=== PATIENT | female | born 1960 | race Caucasian/White ===

== ENCOUNTER 2018-05-13 08:40 | Outpatient (CLI) | payer OTHER ==
[2018-05-13 10:13] LABS: #Basophils 0.1 thou/uL (0.0-0.2); #Eosinphils 0.3 thou/uL (0.0-0.7); #Lymphocytes 2.9 thou/uL (1.20-3.40); #Monocytes 0.5 thou/uL (0.11-0.59); #Neutrophils 5.5 thou/uL (1.40-6.50); %Basophils 0.7 % (0.0-1.0); %Eosinophils 3.4 % (0.0-10.0); %Lymphocytes 31.3 % (21.0-51.0); %Monocytes 5.8 % (0.0-10.0); %Neutrophils 58.8 % (42.0-75.0); Hemoglobin 12.7 g/dL (12.0-16.0); Mean Corpuscular HGB CONC 32.2 g/dL (32.0-36.0); Mean Corpuscular Hemoglobin 30.9 pg (27.0-31.0); Mean Corpuscular Volume 95.8 fL (78.0-98.0); Mean Platelet Volume 6.6 fL (7.4-10.4); Platelet Count 541 thou/uL (130-400); RBC Distribution Width 12.2 % (11.5-14.5); Red Blood Cell (RBC) Count 4.12 mill/uL (4.20-5.40); White Blood Cell (WBC) Count 9.3 thou/uL (4.8-10.8)
[2018-05-13 10:23] LABS: INR-International Normal Ratio 0.9; PTT 24.8 SEC (22.9-36.1); Prothrombin Time 12.2 SEC (12.0-14.7)
== END 2018-05-13 08:41 | disposition home or self-care (01) ==
LOC: LABBT 08:40
PROVIDERS: ATTEND Neurological Surgery
DX: Z01.812 Encounter for preprocedural laboratory examination (principal); M43.16 Spondylolisthesis, lumbar region
CPT/HCPCS: 85025; 85610; 85730

== ENCOUNTER 2018-05-13 09:15 | Inpatient (IN) | payer OTHER ==
[2018-05-13 08:59] VITALS: BMI 23.6
--- NOTE | 2018-05-15 08:03 | HP ---
HISTORY OF PRESENT ILLNESS: Ms. Cummins is a 57-year-old female who has returned to our office for evaluation and review of new MRI and to talk about surgery. She has history of cervical spondylitic myelopathy treated with cervical laminectomy along with prior L4-L5 disk surgery. She remembers waking up from cervical spine operation, unable to use her arms, but gradually improved. She has had chronic pain for a long time now with 30 mg of gradual release morphine use twice daily to control it. With this history, she now has increasing midline sacral pain and some pain radiating around the right gluteal area to the anterior thigh, medial knee and stopping at the knee. There is random quality of pain and it stops her in mid walking occasionally. At other times she feels well and is active. The left leg has not been affected over the last few weeks. She has had some bouts of incontinence in the past with increased frequency recently. There are no new areas of numbness or any new weakness. REVIEW OF SYSTEMS: A 10-point review of systems has been completed and is negative other than stated in the HPI above. PAST MEDICAL HISTORY: Asthma, hypertension, chronic idiopathic urticaria, stomach pain, joint pain, PTSD, depression. ALLERGIES: PENICILLIN, TETRACYCLINE, TYLENOL, IBUPROFEN, CONTRAST DYE. PAST SURGICAL HISTORY: Bilateral TMJ, endometriosis, C3 through C5 laminectomy , right parathyroid removed and L3-5 laminectomy. FAMILY HISTORY: Father is , diagnosed with hypertension, mental illness cancer. Mother is , diagnosed with hypertension, heart disease , and stroke. Siblings are alive. SOCIAL HISTORY: The patient denies use of tobacco, illicit drugs or alcohol. PHYSICAL EXAMINATION: CONSTITUTION: The patient is alert and oriented, does not appear to be in any visible distress. HEENT: Head is normocephalic, atraumatic. Pupils are equal, round, reactive to light. Extraocular movements are intact. Vision is intact. Hearing is intact. Moist mucous membranes. RESPIRATORY: Normal work of breathing room air. CARDIAC: Regular rate and rhythm. Normal S1, S2. NEUROLOGIC: Gait and station: Mildly spastic gait tandem gait impossible. Motor exam: There is right leg giveaway with testing. IP, quadriceps, hamstrings. No objective weakness in other musculature. Sensory exam: There is no dermatomal sensory loss in L1, L2, L3, L4, L5, S1. Reflex exam: Extenuated reflexes, clonus at both ankles. IMAGING: MRI at L3-4 lateral recess disease and L4-5 prior surgery with disk collapse and listhesis 2017, right L4 synovial cyst is better now than it was then. X-rays, flexion, extension views from last year indicate L3-L4 instability and L4-L5 lesthesis is not mobile, grade I-II. ASSESSMENT AND PLAN: Spondylolisthesis in the lumbar region with spinal stenosis repair. PLAN: Dr. Sainz has offered surgery, decompressive laminectomy L3 through L5 with a fusion of L3 through L5. Informed consent, we have discussed indications, risks, benefits, alternatives, and expected results with surgery. The risks discussed included, but were not limited to bleeding, infection, CSF leak, nerve damage, weakness, incontinence, cauda equina injury, arachnoiditis, paralysis, ventilator dependent, wheelchair dependence, loss of vision, hardware misplacement, cardiopulmonary complications of anesthesia or . Long-term complications discussed included, but were not limited to the degradation of surrounding disks and the need for further surgery. The patient states that she understands the risks and willing to proceed with surgery. GEN
[2018-05-16] MEDS ORDERED: Bupivacaine HCl 0.5%/Epinephrine 1:200,000/PF 30 ml Vial ONE (06:16)
[2018-05-16] MEDS ORDERED: Sodium Chloride 0.9% 20 ML ONE (06:16)
[2018-05-16] MEDS ORDERED: Thrombin 5000 UNITS/5 ML VIAL ONE (06:17)
[2018-05-16] MEDS ORDERED: Midazolam HCl 2 mg/2 ml Vial ONE (06:26)
[2018-05-16] MEDS ORDERED: Fentanyl 250 MCG/5 ML VIAL ONE (06:26)
[2018-05-16] MEDS ORDERED: Clindamycin/D5W 900 mg/50 ml Premix Bag ONE (06:36)
[2018-05-16] MEDS ORDERED: Levofloxacin 500 mg/D5W 100 ml Premix Bag ONE (06:36)
[2018-05-16] MEDS ORDERED: Phenylephrine HCL 10 MG/ML VIAL ONE (08:31)
[2018-05-16] MEDS ORDERED: Promethazine HCl 25 MG/ML VIAL SLOW IVP PRN (11:05)
[2018-05-16] MEDS ORDERED: Ondansetron HCl/PF 4 MG/2 ML Vial IVP PRN (11:05)
[2018-05-16] MEDS ORDERED: Promethazine HCl 25 MG/ML VIAL IM PRN (11:05)
[2018-05-16] MEDS ORDERED: diphenhydrAMINE 50 MG/ML VIAL IVP PRN (12:03)
[2018-05-16] MEDS ORDERED: Milk Of Magnesia 30 ML UDCUP PO PRN (12:03)
[2018-05-16] MEDS ORDERED: traMADol HCl 50 MG TAB PO PRN (12:03)
[2018-05-16] MEDS ORDERED: Bisacodyl 10 MG SUPP PR PRN (12:03)
[2018-05-16] MEDS ORDERED: Ondansetron PF 4 MG/2 ML Vial IVP PRN (12:03)
[2018-05-16] MEDS ORDERED: Promethazine 25 MG TAB PO PRN (12:03)
[2018-05-16] MEDS ORDERED: diphenhydrAMINE 25 MG CAP PO PRN (12:03)
--- NOTE | 2018-05-16 12:17 | OP ---
DATE OF PROCEDURE: 05/16/2018 SURGEON: Frannie Sainz M.D. [employer] DEVELOPER: Joy Lunsford PA-C. PREOPERATIVE INDICATION: Treat pain, prevent neurological deterioration. PREOPERATIVE DIAGNOSES: Unstable mobile spondylolisthesis at L3-L4 with lateral recess stenosis caus ing radiculopathy, recurrent stenosis L4-5 with spondylolisthesis and advanced degenerative disk dise ase along with foraminal stenosis at L4-5. POSTOPERATIVE DIAGNOSES: Unstable mobile spondylolisthesis at L3-L4 with lateral recess stenosis cau sing radiculopathy, recurrent stenosis L4-5 with spondylolisthesis and advanced degenerative disk dis ease along with foraminal stenosis at L4-5. OPERATIVE PROCEDURE: Reopening lumbar incision, repeat lumbar decompression at L4-L5 with a laminect leesa, facetectomy, wide foraminotomy, L3-4 laminectomy, medial facetectomy, foraminotomy, transforamin al lumbar interbody arthrodesis at L3-L4 and L4-L5, placement of intervertebral biomechanical device at L3-4 and L4-5, pedicle screw and candiad instrumentation L3-4, L4-L5, posterolateral arthrodesis L3-4 and L4-L5, local morselized autograft, morselized Allograft. PREOPERATIVE MEDICATION: Ancef 2 grams IV. DRAIN NUMBER: Zero. DRAIN TYPE: None. OPERATIVE DICTATION: The patient was brought to the operating room. General endotracheal anesthesia was induced. The patient was positioned prone on the Gaston frame with appropriate padding for the chest and hips. A lateral fluoro radiograph was used to confirm that her previous incision would gi ve us access to the L4-5 segment of the lumbar spine. We marked out an incision extending superiorly from there to give us access to L3 as well. The lumbar skin was sterilely prepped and draped and we opened with a 10 blade knife. We controlled bleeding with bipolar cautery. We used monopolar caute ry to dissect through subcutaneous tissues to the thoracodorsal fascia. We incised the fascia in the midline and reflected the paraspinal muscles off the spinous process and lamina of L3, the superior portion of L4 and the bottom of L5. Between the remnant of L4 and the top of L5 there was scar tissu e, we had to dissect through, all the way down until we were flush with the laminae. We placed self- retaining retractors. We took a lateral fluoro radiograph to confirm the levels upon which we were o perating. We then performed a laminectomy, medial facetectomy and foraminotomy at L3-4. At L4-L5, w e dissected scar tissue free of the lateral confines of the spinal canal. We loosened the dural meghann chments by performing more of a bilateral laminotomy, medial facetectomy and foraminotomy over the ex iting L5 nerve roots. We passed a ball probe out the L3, L4, and L5 nerve root foramina and performe d foraminotomies until they were widely patent. Once the neural elements were decompressed we turned our attention to arthrodesis. The easiest access to the intervertebral space was from the left. We performed complete facetectomy at L3-4, L4-5 on the left side and through the L3 and L4 nerve root f oramina we accessed the intervertebral spaces. We incised them with an 11 blade knife. We removed d isk contents using curettes and rongeurs. We advanced a rectangular shaped bone rasp into the inters paces. The L4-5 interspace measured only 7 mm in height. At L3-4 the measurement was 10 mm. We pre pared the endplates for grafting with curets. Our laminectomy bone was carefully morcellized on the back table after all soft tissue was removed from the bone. This morselized bone was added to demine ralized bone matrix as our fusion substrate. A 10 mm and a 7 mm PEEK intervertebral grafts were brou ght into the field. They were packed with our demineralized bone matrix and morselized autograft and advanced into their respective interspaces under radiographic guidance to the appropriate depth. We turned our attention to pedicle screw instrumentation. Using bony anatomic landmarks, palpation of the medial portion of the pedicles, and a lateral fluoro radiograph as our guide, we chose entry points for pedicle screws at L3, L4, and L5 bilaterally. We drilled out our entry points and then used the bone awl to advance through the pedicles into the vert ebral bodies. We tapped our trajectories and probed them. We found them completely encased in bone. We placed 6.5 mm diameter screws through the pedicles into the vertebral bodies at L3, L4, L5. We irrigated copiously with bacitracin irrigation. We placed rods down in the screw heads and tightened caps over the rods. Before final tightening, we used compression across the two interspaces to keep our interbody grafts in place. Using a kdnjak-[id number]-frrhej mechanism, we ensured adequate tightne ss of the caps. With a high-speed drill, we decorticated the transverse processes of L3, L4, and L5 bilaterally and over all the decorticated bone, we left demineralized bone matrix and morselized auto graft as are posterolateral fusion substrate. We irrigated the center of the wound once again. We m cordelia sure that our compression did not narrow the foramina by passing a Musa ball probe out with eac h of the L3 and L4 nerve roots. We treated the wound with vancomycin powder and we closed the wound in anatomic layers. We applied a sterile dressing. This was a clean case and no contamination.
[2018-05-16] MEDS ORDERED: Fentanyl 100 MCG/2 ML VIAL ONE ×2 (12:29→12:48)
[2018-05-16] MEDS ORDERED: PHENYLEPHRINE-NS 100 MCG/ML 10 ML SYRINGE ONE (12:56)
[2018-05-16] MEDS ORDERED: Ondansetron PF 4 MG/2 ML Vial ONE (12:56)
[2018-05-16] MEDS ORDERED: PROPOFOL 200 MG/20 ML VIAL ONE (12:56)
[2018-05-16] MEDS ORDERED: Lidocaine 1% PF 5 ML VIAL ONE (12:56)
[2018-05-16] MEDS ORDERED: ePHEDrine/0.9% NaCl/PF SYRINGE 50 mg/10 ml ONE (12:56)
[2018-05-16] MEDS ORDERED: Metoclopramide HCl 10 MG/2 ML VIAL ONE (12:56)
[2018-05-16] MEDS ORDERED: HYDROmorphone 2 MG/ML VIAL ONE (13:08)
[2018-05-16] MEDS ORDERED: HYDROmorphone 0.5 MG/0.5 ML SYRINGE SLOW IVP PRN (13:09)
[2018-05-16] MEDS ORDERED: Promethazine HCl 25 MG/ML VIAL ONE (13:22)
[2018-05-16] MEDS: tiZANidine HCl 4 MG TAB PO PRN ×2 (15:16→22:42)
[2018-05-16] MEDS ORDERED: hydrALAZINE 20 MG/ML VIAL SLOW IVP PRN (15:27)
[2018-05-16] MEDS ORDERED: Eucerin (Mineral Oil/Petrolatum,White) 30 gm Jar TOP PRN (15:27)
[2018-05-16] MEDS ORDERED: Diabetic Tussin 200 MG/10 ML UDCUP PO PRN (15:27)
[2018-05-16] MEDS ORDERED: Ondansetron ODT 4 MG TAB PO PRN (15:27)
[2018-05-16] MEDS ORDERED: Dextrose 50% Abboject 50 ML SYRINGE SLOW IVP PRN (15:27)
[2018-05-16] MEDS ORDERED: Artificial Tears 18 DROP/0.9 ML EA EYE PRN (15:27)
[2018-05-16] MEDS ORDERED: Cepastat Lozenges 1 LOZ PO PRN (15:27)
[2018-05-16] MEDS ORDERED: Dextrose 5% in Water 1,000 ML IV PRN (15:27)
[2018-05-16] MEDS ORDERED: HumaLOG 300 UNITS/3 ML VIAL SC PRN (15:27)
[2018-05-16] MEDS ORDERED: Zolpidem Tartrate 5 MG TAB PO PRN (15:27)
--- NOTE | 2018-05-16 15:33 | PDOC.PN ---
- Subjective Encounter Start Date: 05/16/18 Encounter Start Time: 15:28 -: old records requested/rev Patient seen and examined. No new complaints. No overnight events - Objective Resuscitation Status: Resuscitation Status FULL:Full Resuscitation MAR Reviewed: Yes Vital Signs & Weight: Weight Weight 121 lb Additional Labs: Accuchecks 05/16/18 05/16/18 12:19 06:09 POC Glucose 146 H 113 H Phys Exam - Physical Examination Constitutional: NAD HEENT: PERRLA, moist MMs, sclera anicteric Neck: no JVD, supple Respiratory: no wheezing, no rales, no rhonchi Cardiovascular: RRR, no significant murmur, no rub Gastrointestinal: soft, non-tender, no distention, positive bowel sounds Musculoskeletal: no edema, pulses present Neurological: non-focal, normal sensation Lymphatic: no nodes Psychiatric: normal affect Skin: no rash, normal turgor Dx/Plan (1) S/P lumbar laminectomy Code(s): Z98.890 - OTHER SPECIFIED POSTPROCEDURAL STATES Status: Acute (2) Anxiety and depression Code(s): F41.9 - ANXIETY DISORDER, UNSPECIFIED; F32.9 - MAJOR DEPRESSIVE DISORDER, SINGLE EPISODE, UNSPECIFIED Status: Chronic (3) Asthma Code(s): J45.909 - UNSPECIFIED ASTHMA, UNCOMPLICATED Status: Chronic (4) Diabetes type 2, controlled Code(s): E11.9 - TYPE 2 DIABETES MELLITUS WITHOUT COMPLICATIONS Status: Chronic (5) Dyslipidemia Code(s): E78.5 - HYPERLIPIDEMIA, UNSPECIFIED Status: Chronic (6) GERD (gastroesophageal reflux disease) Code(s): K21.9 - GASTRO-ESOPHAGEAL REFLUX DISEASE WITHOUT ESOPHAGITIS Status: Chronic (7) Hypertension Code(s): I10 - ESSENTIAL (PRIMARY) HYPERTENSION Status: Chronic (8) Hypothyroidism Code(s): E03.9 - HYPOTHYROIDISM, UNSPECIFIED Status: Chronic - Plan cont current plan of care, plan discussed w/ family, PT/OT * Home medication reconciled * medication reviewed as below * symptomatic treatment * code status addressed and she is full code * hyperglycemia protocol treatment started * will monitor closely * pain control with pain meds as below. * discussed with family bedside Review of Systems - Review of Systems ENT: negative: Ear Pain, Ear Discharge, Nose Pain, Nose Discharge, Nose Congestion, Mouth Pain, Mouth Swelling, Throat Pain, Throat Swelling, Other Respiratory: negative: Cough, Dry, Shortness of Breath, Hemoptysis, SOB with Excertion, Pleuritic Pain, Sputum, Wheezing Cardiovascular: negative: chest pain, palpitations, orthopnea, paroxysmal nocturnal dyspnea, edema, light headedness, other Gastrointestinal: negative: Nausea, Vomiting, Abdominal Pain, Diarrhea, Constipation, Melena, Hematochezia, Other Genitourinary: negative: Dysuria, Frequency, Incontinence, Hematuria, Retention , Other Musculoskeletal: Back Pain. negative: Neck Pain, Shoulder Pain, Arm Pain, Hand Pain, Leg Pain, Foot Pain, Other Skin: negative: Rash, Lesions, Jr, Bruising, Other - Medications/Allergies Allergies/Adverse Reactions: Allergies Allergy/AdvReac Type Severity Reaction Status Date / Time acetaminophen [From Tylenol] Allergy Verified 05/13/18 09:01 amitriptyline Allergy Verified 05/13/18 09:01 amoxicillin Allergy Verified 05/13/18 09:01 baclofen Allergy Verified 05/13/18 09:01 ciprofloxacin Allergy Verified 05/13/18 09:01 erythromycin base Allergy Verified 05/13/18 09:01 Estrogens Allergy Verified 05/13/18 09:01 Iodine and Iodide Containing Allergy Verified 05/13/18 09:01 Produc naproxen [From Aleve] Allergy Verified 05/13/18 09:01 Penicillins Allergy Verified 05/13/18 09:01 Tetracyclines Allergy Verified 05/13/18 09:01 Medications: Current Medications Al Hydroxide/Mg Hydroxide (Maalox) 30 ml PO Q4H PRN PRN Reason: Indigestion Albuterol Sulfate (Proventil Hfa) 2 puff INH BID-RT [facility] Artificial Tears (Tears Naturale) 2 drop EA EYE PRN PRN PRN Reason: Dry Eyes Atorvastatin Calcium (Lipitor) 80 mg PO HS [facility] Bisacodyl (Dulcolax) 10 mg MO Q12H PRN PRN Reason: Constipation Cetirizine HCl (Zyrtec) 10 mg PO TID [facility] Dextrose/Water (Dextrose 50%) 25 gm SLOW IVP PRN PRN PRN Reason: Hypoglycemia Diphenhydramine HCl (Benadryl) 25 mg IVP Q6H PRN PRN Reason: Itching Diphenhydramine HCl (Benadryl) 25 mg PO Q6H PRN PRN Reason: Itching Doxepin HCl (Sinequan) 25 mg PO HS [facility] Escitalopram Oxalate (Lexapro) 20 mg PO QAM [facility] Gabapentin (Neurontin) 600 mg PO TID [facility] Glucagon (Glucagon) 1 mg IM PRN PRN PRN Reason: Hypoglycemia Guaifenesin (Organ-I Nr) 200 mg PO Q8HR [facility] Guaifenesin (Robitussin Sf) 200 mg PO Q4H PRN PRN Reason: Cough Hydralazine HCl (Apresoline) 10 mg SLOW IVP Q4H PRN PRN Reason: SBP > 180 and HR < 70 Hydromorphone HCl (Dilaudid) 0.5 mg SLOW IVP Q10MIN PRN PRN Reason: Pain Stop: 05/16/18 15:30 Clindamycin Phosphate/Dextrose (900 mg/ Device) 50 mls @ 100 mls/hr IVPB 0800, 1600,2359 [facility] Stop: 05/17/18 00:28 Sodium Chloride (Normal Saline 0.9%) 1,000 mls @ 75 mls/hr IV .[id number] [facility] Dextrose/Water (D5w) 1,000 mls @ 0 mls/hr IV .Q0M PRN PRN Reason: Hypoglycemia Insulin Human Lispro (Humalog) 0 units SC .MODERATE SLIDING SC PRN PRN Reason: Moderate Correctional Scale Insulin Human Lispro (Humalog) 0 units SC .BEDTIME SLIDING SC PRN PRN Reason: Bedtime Correctional Scale Ketorolac Tromethamine (Toradol) 15 mg IVP Q6H PRN PRN Reason: Pain Stop: 05/21/18 12:12 Levothyroxine Sodium (Synthroid) 88 mcg PO 0600 [facility] Lisinopril (Zestril) 5 mg PO QAM [facility] Magnesium Hydroxide (Milk Of Magnesium) 30 ml PO Q12H PRN PRN Reason: Constipation Melatonin (Melatonin) 6 mg PO HS [facility] Menthol/Methyl Salicylate (Muscle Rub Cream (Bengay)) 0 gm TOP BID [facility] Metformin HCl (Glucophage) 1,000 mg PO BID-WM [facility] Metoprolol Tartrate (Lopressor) 50 mg PO BID [facility] Mineral Oil/White Petrolatum (Lacri-Lube Ointment) 0 gm EA EYE HS [facility] Mineral Oil/White Petrolatum (Eucerin Cream) 0 gm TOP BIDPRN PRN PRN Reason: Dry Skin Morphine Sulfate (Morphine) 2 mg SLOW IVP Q1H PRN PRN Reason: Moderate Breakthrough Pain Ondansetron HCl (Zofran) 4 mg IVP DAILYPRN PRN PRN Reason: Nausea Ondansetron HCl (Zofran Odt) 4 mg PO Q6H PRN PRN Reason: Nausea/Vomiting Pantoprazole Sodium (Protonix) 40 mg PO BID [facility] Estrogen,Con/M- Progest Acet [ Prempro 0.3 Mg-1.5 Mg Tablet] 0 each PO QAM [facility] Promethazine HCl (Phenergan) 12.5 mg PO Q4H PRN PRN Reason: Nausea/Vomiting Sodium Chloride (Flush - Normal Saline) 10 ml IVF PRN PRN PRN Reason: Saline Flush Throat Lozenges (Cepastat Lozenges) 1 adeline PO Q2H PRN PRN Reason: Sore Throat Tizanidine HCl (Zanaflex) 4 mg PO Q6H PRN PRN Reason: Muscle Spasm Last Admin: 05/16/18 15:16 Dose: 4 mg Tramadol HCl (Ultram) 50 mg PO Q6H PRN PRN Reason: Mild Pain (1-3) Tramadol HCl (Ultram) 100 mg PO Q6H PRN PRN Reason: Moderate Pain (4-6) Zolpidem Tartrate (Ambien) 5 mg PO HSPRN PRN PRN Reason: Insomnia
[2018-05-16] MEDS: Gabapentin 300 MG CAP PO SCH ×2 (16:13→21:12)
[2018-05-16] MEDS: Sodium Chloride 0.9% 1,000 ML IV SCH (16:13)
[2018-05-16] MEDS: Clindamycin/D5W 900 MG in Premix Bag 1 BAG IVPB SCH (16:13)
[2018-05-16 17:54] LABS: #Basophils 0.1 thou/uL (0.0-0.2); #Lymphocytes 1.6 thou/uL (1.20-3.40); #Monocytes 0.9 thou/uL (0.11-0.59); #Neutrophils 6.9 thou/uL (1.40-6.50); %Eosinophils 0.3 % (0.0-10.0); %Lymphocytes 16.7 % (21.0-51.0); %Monocytes 9.2 % (0.0-10.0); %Neutrophils 72.8 % (42.0-75.0); Mean Corpuscular HGB CONC 32.6 g/dL (32.0-36.0); Mean Corpuscular Hemoglobin 31.4 pg (27.0-31.0); Mean Corpuscular Volume 96.4 fL (78.0-98.0); Mean Platelet Volume 6.3 fL (7.4-10.4); Platelet Count 370 thou/uL (130-400); RBC Distribution Width 11.9 % (11.5-14.5); Red Blood Cell (RBC) Count 2.87 mill/uL (4.20-5.40); White Blood Cell (WBC) Count 9.5 thou/uL (4.8-10.8)
[2018-05-16] MEDS ORDERED: Sodium Chloride 0.9% 1,000 ML IV SCH (18:00)
[2018-05-16] MEDS: metFORMIN 500 MG TAB PO SCH (18:10)
[2018-05-16] MEDS: PROVENTIL INHALER 6.7 G (200 INHALATIONS) INH SCH (19:14)
[2018-05-16] MEDS: Lacri-Lube Opth Oint 3.5 GM TUBE EA EYE SCH (21:11)
[2018-05-16] MEDS: Atorvastatin Calcium 40 MG TAB PO SCH (21:11)
[2018-05-16] MEDS: Doxepin HCl 25 MG CAP PO SCH (21:11)
[2018-05-16] MEDS: Melatonin 3 MG TAB PO SCH (21:13)
[2018-05-16] MEDS: Metoprolol Tartrate 50 MG TAB PO SCH (21:13)
[2018-05-16] MEDS: Methyl Salicylate/Menthol 85 GM TUBE TOP SCH (21:13)
[2018-05-16] MEDS: Ketorolac Tromethamine 30 MG/ML VIAL IVP PRN (21:14)
[2018-05-16] MEDS: guaiFENesin 200 MG TAB PO SCH (22:42)
[2018-05-17] MEDS: Clindamycin/D5W 900 MG in Premix Bag 1 BAG IVPB SCH (00:31)
[2018-05-17] MEDS: Sodium Chloride 0.9% 1,000 ML IV SCH ×3 (02:41→21:39)
[2018-05-17] MEDS: guaiFENesin 200 MG TAB PO SCH ×3 (06:52→21:40)
[2018-05-17] MEDS: HumaLOG 300 UNITS/3 ML VIAL SC PRN ×2 (06:53→15:36)
[2018-05-17] MEDS: Levothyroxine Sodium 88 MCG TAB PO SCH (06:53)
[2018-05-17] MEDS: Ketorolac Tromethamine 30 MG/ML VIAL IVP PRN (06:53)
[2018-05-17] MEDS: PROVENTIL INHALER 6.7 G (200 INHALATIONS) INH SCH ×2 (07:58→19:16)
[2018-05-17] MEDS ORDERED: Dexamethasone 20 MG/5 ML VIAL SLOW IVP SCH (08:30)
[2018-05-17] MEDS ORDERED: Dexamethasone 4 mg/ml Vial SLOW IVP SCH (09:15)
--- NOTE | 2018-05-17 09:26 | PDOC.PN ---
- Subjective Encounter Start Date: 05/17/18 Encounter Start Time: 07:40 Patient seen and examined. No new complaints. No overnight events, she has mild surgery related pain - Objective Resuscitation Status: Resuscitation Status FULL:Full Resuscitation MAR Reviewed: Yes Vital Signs & Weight: Vital Signs (12 hours) Temp Pulse Resp BP Pulse Ox 05/17/18 07:58 88 16 98 05/17/18 07:03 99.3 F 88 20 110/70 95 05/17/18 05:00 103/67 05/17/18 04:00 97.9 F 94 16 73/43 L 92 L Weight Weight 121 lb I&O: 05/16/18 05/17/18 05/18/18 06:59 06:59 06:59 Intake Total 1665 Balance 1665 Result Diagrams: 05/16/18 17:45 Additional Labs: Accuchecks 05/17/18 05/16/18 05/16/18 06:12 20:45 17:15 POC Glucose 182 H 153 H 199 H 05/16/18 12:19 POC Glucose 146 H Phys Exam - Physical Examination Constitutional: NAD HEENT: PERRLA, moist MMs, sclera anicteric Neck: no JVD, supple Respiratory: no wheezing, no rales, no rhonchi Cardiovascular: RRR, no significant murmur, no rub Gastrointestinal: soft, non-tender, no distention, positive bowel sounds Musculoskeletal: no edema, pulses present Neurological: non-focal, normal sensation Psychiatric: normal affect, A&O x 3 Skin: no rash, normal turgor Dx/Plan (1) S/P lumbar laminectomy Code(s): Z98.890 - OTHER SPECIFIED POSTPROCEDURAL STATES Status: Acute (2) Anxiety and depression Code(s): F41.9 - ANXIETY DISORDER, UNSPECIFIED; F32.9 - MAJOR DEPRESSIVE DISORDER, SINGLE EPISODE, UNSPECIFIED Status: Chronic (3) Asthma Code(s): J45.909 - UNSPECIFIED ASTHMA, UNCOMPLICATED Status: Chronic (4) Diabetes type 2, controlled Code(s): E11.9 - TYPE 2 DIABETES MELLITUS WITHOUT COMPLICATIONS Status: Chronic (5) Dyslipidemia Code(s): E78.5 - HYPERLIPIDEMIA, UNSPECIFIED Status: Chronic (6) GERD (gastroesophageal reflux disease) Code(s): K21.9 - GASTRO-ESOPHAGEAL REFLUX DISEASE WITHOUT ESOPHAGITIS Status: Chronic (7) Hypertension Code(s): I10 - ESSENTIAL (PRIMARY) HYPERTENSION Status: Chronic (8) Hypothyroidism Code(s): E03.9 - HYPOTHYROIDISM, UNSPECIFIED Status: Chronic - Plan cont current plan of care, PT/OT * medication reviewed as below * symptomatic treatment * pain controlled with pain meds * ambulate with PT * discharge decision as per primary * medically stable. * start home dose of levemir insulin Review of Systems - Review of Systems Eyes: negative: Pain, Vision Change, Conjunctivae Inflammation, Eyelid Inflammation, Redness, Other ENT: negative: Ear Pain, Ear Discharge, Nose Pain, Nose Discharge, Nose Congestion, Mouth Pain, Mouth Swelling, Throat Pain, Throat Swelling, Other Respiratory: negative: Cough, Dry, Shortness of Breath, Hemoptysis, SOB with Excertion, Pleuritic Pain, Sputum, Wheezing Cardiovascular: negative: chest pain, palpitations, orthopnea, paroxysmal nocturnal dyspnea, edema, light headedness, other Gastrointestinal: negative: Nausea, Vomiting, Abdominal Pain, Diarrhea, Constipation, Melena, Hematochezia, Other Genitourinary: negative: Dysuria, Frequency, Incontinence, Hematuria, Retention , Other Musculoskeletal: Back Pain. negative: Neck Pain, Shoulder Pain, Arm Pain, Hand Pain, Leg Pain, Foot Pain, Other Skin: negative: Rash, Lesions, Jr, Bruising, Other - Medications/Allergies Allergies/Adverse Reactions: Allergies Allergy/AdvReac Type Severity Reaction Status Date / Time acetaminophen [From Tylenol] Allergy Verified 05/13/18 09:01 amitriptyline Allergy Verified 05/13/18 09:01 amoxicillin Allergy Verified 05/13/18 09:01 baclofen Allergy Verified 05/13/18 09:01 ciprofloxacin Allergy Verified 05/13/18 09:01 erythromycin base Allergy Verified 05/13/18 09:01 Estrogens Allergy Verified 05/13/18 09:01 Iodine and Iodide Containing Allergy Verified 05/13/18 09:01 Produc naproxen [From Aleve] Allergy Verified 05/13/18 09:01 Penicillins Allergy Verified 05/13/18 09:01 Tetracyclines Allergy Verified 05/13/18 09:01 Medications: Current Medications Al Hydroxide/Mg Hydroxide (Maalox) 30 ml PO Q4H PRN PRN Reason: Indigestion Albuterol Sulfate (Proventil Hfa) 2 puff INH BID-RT [facility] Last Admin: 05/17/18 07:58 Dose: 2 puff Artificial Tears (Tears Naturale) 2 drop EA EYE PRN PRN PRN Reason: Dry Eyes Atorvastatin Calcium (Lipitor) 80 mg PO HS [facility] Last Admin: 05/16/18 21:11 Dose: 80 mg Bisacodyl (Dulcolax) 10 mg [place] Q12H PRN PRN Reason: Constipation Dexamethasone (Decadron) 8 mg SLOW IVP 0915 [facility] Stop: 05/17/18 11:00 Dextrose/Water (Dextrose 50%) 25 gm SLOW IVP PRN PRN PRN Reason: Hypoglycemia Diphenhydramine HCl (Benadryl) 25 mg IVP Q6H PRN PRN Reason: Itching Diphenhydramine HCl (Benadryl) 25 mg PO Q6H PRN PRN Reason: Itching Doxepin HCl (Sinequan) 25 mg PO [facility] Last Admin: 05/16/18 21:11 Dose: 25 mg Escitalopram Oxalate (Lexapro) 20 mg PO QAM [facility] Gabapentin (Neurontin) 600 mg PO TID [facility] Last Admin: 05/16/18 21:12 Dose: 600 mg Glucagon (Glucagon) 1 mg IM PRN PRN PRN Reason: Hypoglycemia Guaifenesin (Organ-I Nr) 200 mg PO Q8HR [facility] Last Admin: 05/17/18 06:52 Dose: 200 mg Guaifenesin (Robitussin Sf) 200 mg PO Q4H PRN PRN Reason: Cough Hydralazine HCl (Apresoline) 10 mg SLOW IVP Q4H PRN PRN Reason: SBP > 180 and HR < 70 Dextrose/Water (D5w) 1,000 mls @ 0 mls/hr IV .Q0M PRN PRN Reason: Hypoglycemia Sodium Chloride (Normal Saline 0.9%) 1,000 mls @ 80 mls/hr IV .[id number] [facility] Insulin Human Lispro (Humalog) 0 units SC .MODERATE SLIDING SC PRN PRN Reason: Moderate Correctional Scale Last Admin: 05/17/18 06:53 Dose: 2 unit Insulin Human Lispro (Humalog) 0 units SC .BEDTIME SLIDING SC PRN PRN Reason: Bedtime Correctional Scale Ketorolac Tromethamine (Toradol) 15 mg IVP Q6H PRN PRN Reason: Pain Stop: 05/21/18 12:12 Last Admin: 05/17/18 06:53 Dose: 15 mg Levothyroxine Sodium (Synthroid) 88 mcg PO 0600 [facility] Last Admin: 05/17/18 06:53 Dose: 88 mcg Lisinopril (Zestril) 5 mg PO QAM [facility] Loratadine (Claritin) 10 mg PO QAM [facility] Magnesium Hydroxide (Milk Of Magnesium) 30 ml PO Q12H PRN PRN Reason: Constipation Melatonin (Melatonin) 6 mg PO [facility] Last Admin: 05/16/18 21:13 Dose: 6 mg Menthol/Methyl Salicylate (Muscle Rub Cream (Bengay)) 0 gm TOP BID [facility] Last Admin: 05/16/18 21:13 Dose: Not Given Metformin HCl (Glucophage) 1,000 mg PO BID-[facility] Last Admin: 05/16/18 18:10 Dose: 1,000 mg Metoprolol Tartrate (Lopressor) 50 mg PO BID [facility] Last Admin: 05/16/18 21:13 Dose: Not Given Mineral Oil/White Petrolatum (Lacri-Lube Ointment) 0 gm EA EYE [facility] Last Admin: 05/16/18 21:11 Dose: Not Given Mineral Oil/White Petrolatum (Eucerin Cream) 0 gm TOP BIDPRN PRN PRN Reason: Dry Skin Morphine Sulfate (Morphine) 2 mg SLOW IVP Q1H PRN PRN Reason: Moderate Breakthrough Pain Ondansetron HCl (Zofran) 4 mg IVP DAILYPRN PRN PRN Reason: Nausea Last Admin: 05/17/18 02:55 Dose: 4 mg Ondansetron HCl (Zofran Odt) 4 mg PO Q6H PRN PRN Reason: Nausea/Vomiting Pantoprazole Sodium (Protonix) 40 mg PO BID [facility] Estrogen,Con/M- Progest Acet [ Prempro 0.3 Mg-1.5 Mg Tablet] 0 each PO QAM [facility] Promethazine HCl (Phenergan) 12.5 mg PO Q4H PRN PRN Reason: Nausea/Vomiting Sodium Chloride (Flush - Normal Saline) 10 ml IVF PRN PRN PRN Reason: Saline Flush Throat Lozenges (Cepastat Lozenges) 1 adeline PO Q2H PRN PRN Reason: Sore Throat Tizanidine HCl (Zanaflex) 4 mg PO Q6H PRN PRN Reason: Muscle Spasm Last Admin: 05/16/18 22:42 Dose: 4 mg Tramadol HCl (Ultram) 50 mg PO Q6H PRN PRN Reason: Mild Pain (1-3) Tramadol HCl (Ultram) 100 mg PO Q6H PRN PRN Reason: Moderate Pain (4-6) Zolpidem Tartrate (Ambien) 5 mg PO HSPRN PRN PRN Reason: Insomnia
[2018-05-17] MEDS: metFORMIN 500 MG TAB PO SCH ×2 (09:37→17:31)
[2018-05-17] MEDS: Lisinopril 5 MG TAB PO SCH (09:38)
[2018-05-17] MEDS: Loratadine 10 MG TAB PO SCH (09:38)
[2018-05-17] MEDS: Gabapentin 300 MG CAP PO SCH ×3 (09:38→21:41)
[2018-05-17] MEDS: Metoprolol Tartrate 50 MG TAB PO SCH ×2 (09:39→21:41)
[2018-05-17] MEDS: Escitalopram Oxalate 20 mg Tablet PO SCH (09:39)
[2018-05-17] MEDS: Methyl Salicylate/Menthol 85 GM TUBE TOP SCH ×2 (09:41→21:53)
[2018-05-17] MEDS: traMADol HCl 50 MG TAB PO PRN ×2 (09:46→17:31)
--- NOTE | 2018-05-17 11:31 | PRG ---
DATE OF SERVICE: 05/17/2018 Ms. Cummins is postop day 1 following lumbar decompression and TLIF with Dr. Sainz. She reports she is having a great deal of pain this morning. She is trying to avoid taking pain medications secondar y to the fact that she continues to be hypertensive at times throughout the evening. Her lowest poin t was this morning at 04:00 where she was 73/43, but most recent she was 110/70. We bolused her yest erday with normal saline and checked the CBC. Her CBC from yesterday was an H and H of 27.7/9. We w ill continue to monitor this if her pressure does not normalize. I will change her normal saline to 80 mL an hour. She has not mobilized much yet secondary to pain. Her bandage is saturated, so we wi ll get that changed since she is also needing to use the restroom. She is also going to need rehabil itation workup and placement more than likely secondary to her slow to mobilize state this morning. I may add a single dose of steroids to see if we can improve some of her inflammatory symptoms, as he r major concern is the spasms down her bilateral legs and then try to mobilize more.
[2018-05-17] MEDS: Morphine 2 MG/ML SYRINGE SLOW IVP PRN (12:43)
[2018-05-17] MEDS ORDERED: INSULIN DETEMIR 8 UNIT SQ SCH (21:00)
[2018-05-17] MEDS ORDERED: Non-Formulary Item 1 EACH (Symbicort 2 PUFF) INH SCH (21:00)
[2018-05-17] MEDS: Melatonin 3 MG TAB PO SCH (21:40)
[2018-05-17] MEDS: Doxepin HCl 25 MG CAP PO SCH (21:40)
[2018-05-17] MEDS: Atorvastatin Calcium 40 MG TAB PO SCH (21:41)
[2018-05-17] MEDS: Insulin Glargine 8 UNITS in Pre-Filled Syringe 1 EACH SC SCH (21:41)
[2018-05-17] MEDS: Lacri-Lube Opth Oint 3.5 GM TUBE EA EYE SCH (21:52)
[2018-05-17] MEDS: tiZANidine HCl 4 MG TAB PO PRN (22:48)
[2018-05-18] MEDS: Levothyroxine Sodium 88 MCG TAB PO SCH (06:24)
[2018-05-18] MEDS: tiZANidine HCl 4 MG TAB PO PRN ×2 (06:24→16:24)
[2018-05-18] MEDS: guaiFENesin 200 MG TAB PO SCH ×3 (06:24→21:04)
[2018-05-18] MEDS: PROVENTIL INHALER 6.7 G (200 INHALATIONS) INH SCH ×2 (06:28→19:23)
[2018-05-18] MEDS: Sodium Chloride 0.9% 1,000 ML IV SCH ×2 (08:06→17:36)
[2018-05-18] MEDS: Gabapentin 300 MG CAP PO SCH ×3 (08:07→21:03)
[2018-05-18] MEDS: Loratadine 10 MG TAB PO SCH (08:07)
[2018-05-18] MEDS: Escitalopram Oxalate 20 mg Tablet PO SCH (08:07)
[2018-05-18] MEDS: Lisinopril 5 MG TAB PO SCH (08:08)
[2018-05-18] MEDS: Methyl Salicylate/Menthol 85 GM TUBE TOP SCH ×2 (08:18→21:23)
[2018-05-18] MEDS: metFORMIN 500 MG TAB PO SCH ×2 (08:21→17:34)
[2018-05-18] MEDS: Metoprolol Tartrate 50 MG TAB PO SCH (08:22)
[2018-05-18 08:48] LABS: #Basophils 0.1 thou/uL (0.0-0.2); #Eosinphils 0.1 thou/uL (0.0-0.7); #Lymphocytes 2.1 thou/uL (1.20-3.40); #Monocytes 1.1 thou/uL (0.11-0.59); #Neutrophils 6.6 thou/uL (1.40-6.50); %Basophils 0.7 % (0.0-1.0); %Eosinophils 0.5 % (0.0-10.0); %Lymphocytes 21.1 % (21.0-51.0); %Monocytes 10.8 % (0.0-10.0); Hemoglobin 7.9 g/dL (12.0-16.0); Mean Corpuscular HGB CONC 32.6 g/dL (32.0-36.0); Mean Corpuscular Hemoglobin 31.7 pg (27.0-31.0); Mean Corpuscular Volume 97.3 fL (78.0-98.0); Mean Platelet Volume 6.8 fL (7.4-10.4); Platelet Count 295 thou/uL (130-400); RBC Distribution Width 11.8 % (11.5-14.5); Red Blood Cell (RBC) Count 2.48 mill/uL (4.20-5.40); White Blood Cell (WBC) Count 9.9 thou/uL (4.8-10.8)
--- NOTE | 2018-05-18 08:55 | PRG ---
DATE OF SERVICE: 05/18/2018 SUBJECTIVE: Ms. Cummins is now day #2 status post lumbar decompression and fusion and TLIF. She continu es to have some struggles with radicular pains in the bilateral lower extremities. Her hypotensive i ssue seems to have settled down over the rest of the day yesterday and she has been up and out of bed to the bathroom a few different times. Her incision has stopped draining. Bandages are dry today a s compared to Saturday, yesterday. Plan will be to disposition to rehabilitation at some point, hope fully tomorrow. She also talks about bladder spasms and needing to go frequently, so we will add lit tle oxybutynin, but also obtain a UA to make sure that there is no potential UTI growing. Otherwise, no additional complaints.
[2018-05-18 09:06] LABS: Anion Gap 11 mmol/L (10-20); BUN (Urea Nitrogen) 7 mg/dL (9.8-20.1); Calc. Creatinine Clearance 89 mL/min (70-130); Calcium 8.4 mg/dL (7.8-10.44); Carbon Dioxide 20 mmol/L (22-29); Chloride 106 mmol/L (98-107); Estimated GFR-MDRD Greater than 90; Glucose 147 mg/dL (70-105); Potassium 3.9 mmol/L (3.5-5.1); Sodium 133 mmol/L (136-145)
--- NOTE | 2018-05-18 10:16 | PDOC.PN ---
- Subjective Encounter Start Date: 05/18/18 Encounter Start Time: 07:40 Patient seen and examined. No new complaints. No overnight events - Objective Resuscitation Status: Resuscitation Status FULL:Full Resuscitation MAR Reviewed: Yes Vital Signs & Weight: Vital Signs (12 hours) Temp Pulse Resp BP BP Pulse Ox 05/18/18 08:08 75 92/56 L 05/18/18 07:18 98.3 F 75 16 99/64 94 L 05/18/18 06:28 79 18 98 05/18/18 04:00 97.8 F 70 16 130/81 92 L 05/18/18 00:00 98.7 F 76 16 130/81 97 Weight Weight 121 lb I&O: 05/17/18 05/18/18 05/19/18 06:59 06:59 06:59 Intake Total 3785 Balance 3785 Result Diagrams: 05/18/18 08:32 05/18/18 08:32 Additional Labs: Accuchecks 05/18/18 05/17/18 05/17/18 05:32 20:38 15:16 POC Glucose 158 H 211 H 221 H 05/17/18 11:03 POC Glucose 199 H Phys Exam - Physical Examination Constitutional: NAD HEENT: PERRLA, moist MMs, sclera anicteric Neck: no JVD, supple Respiratory: no wheezing, no rales, no rhonchi Cardiovascular: RRR, no significant murmur, no rub Gastrointestinal: soft, non-tender, no distention, positive bowel sounds Musculoskeletal: no edema, pulses present Neurological: non-focal, normal sensation Psychiatric: normal affect, A&O x 3 Skin: no rash, normal turgor Dx/Plan (1) Hypotension Status: Acute (2) S/P lumbar laminectomy Code(s): Z98.890 - OTHER SPECIFIED POSTPROCEDURAL STATES Status: Acute (3) Anxiety and depression Code(s): F41.9 - ANXIETY DISORDER, UNSPECIFIED; F32.9 - MAJOR DEPRESSIVE DISORDER, SINGLE EPISODE, UNSPECIFIED Status: Chronic (4) Asthma Code(s): J45.909 - UNSPECIFIED ASTHMA, UNCOMPLICATED Status: Chronic (5) Diabetes type 2, controlled Code(s): E11.9 - TYPE 2 DIABETES MELLITUS WITHOUT COMPLICATIONS Status: Chronic (6) Dyslipidemia Code(s): E78.5 - HYPERLIPIDEMIA, UNSPECIFIED Status: Chronic (7) GERD (gastroesophageal reflux disease) Code(s): K21.9 - GASTRO-ESOPHAGEAL REFLUX DISEASE WITHOUT ESOPHAGITIS Status: Chronic (8) Hypertension Code(s): I10 - ESSENTIAL (PRIMARY) HYPERTENSION Status: Chronic (9) Hypothyroidism Code(s): E03.9 - HYPOTHYROIDISM, UNSPECIFIED Status: Chronic (10) Anemia, normocytic normochromic Code(s): D64.9 - ANEMIA, UNSPECIFIED Status: Chronic - Plan cont current plan of care, plan discussed w/ family, PT/OT, medical social consultant * Hold lisinopril and metoprolol today * continue IVF * medication reviewed as below * symptomatic treatment * will need rehab on discharge. Review of Systems - Review of Systems Eyes: negative: Pain, Vision Change, Conjunctivae Inflammation, Eyelid Inflammation, Redness, Other ENT: negative: Ear Pain, Ear Discharge, Nose Pain, Nose Discharge, Nose Congestion, Mouth Pain, Mouth Swelling, Throat Pain, Throat Swelling, Other Respiratory: negative: Cough, Dry, Shortness of Breath, Hemoptysis, SOB with Excertion, Pleuritic Pain, Sputum, Wheezing Cardiovascular: negative: chest pain, palpitations, orthopnea, paroxysmal nocturnal dyspnea, edema, light headedness, other Gastrointestinal: negative: Nausea, Vomiting, Abdominal Pain, Diarrhea, Constipation, Melena, Hematochezia, Other Genitourinary: negative: Dysuria, Frequency, Incontinence, Hematuria, Retention , Other Musculoskeletal: negative: Neck Pain, Shoulder Pain, Arm Pain, Back Pain, Hand Pain, Leg Pain, Foot Pain, Other Skin: negative: Rash, Lesions, Jr, Bruising, Other - Medications/Allergies Allergies/Adverse Reactions: Allergies Allergy/AdvReac Type Severity Reaction Status Date / Time acetaminophen [From Tylenol] Allergy Verified 05/13/18 09:01 amitriptyline Allergy Verified 05/13/18 09:01 amoxicillin Allergy Verified 05/13/18 09:01 baclofen Allergy Verified 05/13/18 09:01 ciprofloxacin Allergy Verified 05/13/18 09:01 erythromycin base Allergy Verified 05/13/18 09:01 Estrogens Allergy Verified 05/13/18 09:01 Iodine and Iodide Containing Allergy Verified 05/13/18 09:01 Produc naproxen [From Aleve] Allergy Verified 05/13/18 09:01 Penicillins Allergy Verified 05/13/18 09:01 Tetracyclines Allergy Verified 05/13/18 09:01 Medications: Current Medications Al Hydroxide/Mg Hydroxide (Maalox) 30 ml PO Q4H PRN PRN Reason: Indigestion Albuterol Sulfate (Proventil Hfa) 2 puff INH BID-RT [facility] Last Admin: 05/18/18 06:28 Dose: 2 puff Artificial Tears (Tears Naturale) 2 drop EA EYE PRN PRN PRN Reason: Dry Eyes Atorvastatin Calcium (Lipitor) 80 mg PO [facility] Last Admin: 05/17/18 21:41 Dose: 80 mg Bisacodyl (Dulcolax) 10 mg AL Q12H PRN PRN Reason: Constipation Dextrose/Water (Dextrose 50%) 25 gm SLOW IVP PRN PRN PRN Reason: Hypoglycemia Diphenhydramine HCl (Benadryl) 25 mg IVP Q6H PRN PRN Reason: Itching Diphenhydramine HCl (Benadryl) 25 mg PO Q6H PRN PRN Reason: Itching Doxepin HCl (Sinequan) 25 [address] [facility] Last Admin: 05/17/18 21:40 Dose: 25 mg Escitalopram Oxalate (Lexapro) 20 mg PO QAM [facility] Last Admin: 05/18/18 08:07 Dose: 20 mg Gabapentin (Neurontin) 600 mg PO TID [facility] Last Admin: 05/18/18 08:07 Dose: 600 mg Glucagon (Glucagon) 1 mg IM PRN PRN PRN Reason: Hypoglycemia Guaifenesin (Organ-I Nr) 200 mg PO Q8HR [facility] Last Admin: 05/18/18 06:24 Dose: 200 mg Guaifenesin (Robitussin Sf) 200 mg PO Q4H PRN PRN Reason: Cough Hydralazine HCl (Apresoline) 10 mg SLOW IVP Q4H PRN PRN Reason: SBP > 180 and HR < 70 Dextrose/Water (D5w) 1,000 mls @ 0 mls/hr IV .Q0M PRN PRN Reason: Hypoglycemia Sodium Chloride (Normal Saline 0.9%) 1,000 mls @ 80 mls/hr IV .[id number] [facility] Last Admin: 05/18/18 08:06 Dose: 1,000 mls Insulin Glargine 8 units/ (Miscellaneous Medication) 0.08 mls @ 0 mls/hr SC [facility] Last Admin: 05/17/18 21:41 Dose: 0.08 mls Insulin Human Lispro (Humalog) 0 units SC .MODERATE SLIDING SC PRN PRN Reason: Moderate Correctional Scale Last Admin: 05/17/18 15:36 Dose: 4 unit Insulin Human Lispro (Humalog) 0 units SC .BEDTIME SLIDING SC PRN PRN Reason: Bedtime Correctional Scale Ketorolac Tromethamine (Toradol) 15 mg IVP Q6H PRN PRN Reason: Pain Stop: 05/21/18 12:12 Last Admin: 05/17/18 06:53 Dose: 15 mg Levothyroxine Sodium (Synthroid) 88 mcg PO 0600 [facility] Last Admin: 05/18/18 06:24 Dose: 88 mcg Loratadine (Claritin) 10 mg PO QAM [facility] Last Admin: 05/18/18 08:07 Dose: 10 mg Magnesium Hydroxide (Milk Of Magnesium) 30 ml PO Q12H PRN PRN Reason: Constipation Melatonin (Melatonin) 6 mg PO [facility] Last Admin: 05/17/18 21:40 Dose: 6 mg Menthol/Methyl Salicylate (Muscle Rub Cream (Bengay)) 0 gm TOP BID [facility] Last Admin: 05/18/18 08:18 Dose: Not Given Metformin HCl (Glucophage) 1,000 mg PO BID-[facility] Last Admin: 05/18/18 08:21 Dose: 1,000 mg Mineral Oil/White Petrolatum (Lacri-Lube Ointment) 0 gm EA EYE [facility] Last Admin: 05/17/18 21:52 Dose: Not Given Mineral Oil/White Petrolatum (Eucerin Cream) 0 gm TOP BIDPRN PRN PRN Reason: Dry Skin Morphine Sulfate (Morphine) 2 mg SLOW IVP Q1H PRN PRN Reason: Moderate Breakthrough Pain Last Admin: 05/17/18 12:43 Dose: 2 mg Non-Formulary Medication (Symbicort) 2 puff INH BID [facility] Ondansetron HCl (Zofran) 4 mg IVP DAILYPRN PRN PRN Reason: Nausea Last Admin: 05/17/18 02:55 Dose: 4 mg Ondansetron HCl (Zofran Odt) 4 mg PO Q6H PRN PRN Reason: Nausea/Vomiting Oxybutynin Chloride (Ditropan Xl) 5 mg PO DAILY [facility] Pantoprazole Sodium (Protonix) 40 mg PO BID [facility] Last Admin: 05/18/18 08:07 Dose: 40 mg Estrogen,Con/M- Progest Acet [ Prempro 0.3 Mg-1.5 Mg Tablet] 0 each PO QAM [facility] Promethazine HCl (Phenergan) 12.5 mg PO Q4H PRN PRN Reason: Nausea/Vomiting Sodium Chloride (Flush - Normal Saline) 10 ml IVF PRN PRN PRN Reason: Saline Flush Throat Lozenges (Cepastat Lozenges) 1 adeline PO Q2H PRN PRN Reason: Sore Throat Tizanidine HCl (Zanaflex) 4 mg PO Q6H PRN PRN Reason: Muscle Spasm Last Admin: 05/18/18 06:24 Dose: 4 mg Tramadol HCl (Ultram) 50 mg PO Q6H PRN PRN Reason: Mild Pain (1-3) Tramadol HCl (Ultram) 100 mg PO Q6H PRN PRN Reason: Moderate Pain (4-6) Last Admin: 05/17/18 17:31 Dose: 100 mg Zolpidem Tartrate (Ambien) 5 mg PO HSPRN PRN PRN Reason: Insomnia
[2018-05-18] MEDS: Mag-Al 1200 mg/1200 mg/30 ML UDCUP PO PRN (11:48)
[2018-05-18] MEDS: Oxybutynin ER 5 MG TAB PO SCH (11:48)
[2018-05-18] MEDS: traMADol HCl 50 MG TAB PO PRN (14:33)
--- NOTE | 2018-05-18 15:45 | PRG ---
DATE OF SERVICE: 05/18/2018 SUBJECTIVE: Ms. Cummins is now 2 days status post posterior lumbar decompression and fusion. Her postoperative course has been as expected. She does report low back pain as well as some radicular pain. She has had a decline in her hemoglobin but remains asymptomatic at this time. We will continue to monitor her and encourage p.o. intake. We will also ensure she is undergoing electrolyte replacement protocol. We will also continue encourage ambulation. She may need inpatient rehabilitation. GEN
[2018-05-18] MEDS: Atorvastatin Calcium 40 MG TAB PO SCH (21:04)
[2018-05-18] MEDS: Melatonin 3 MG TAB PO SCH (21:05)
[2018-05-18] MEDS: Doxepin HCl 25 MG CAP PO SCH (21:05)
[2018-05-18] MEDS: Lacri-Lube Opth Oint 3.5 GM TUBE EA EYE SCH (21:06)
[2018-05-18] MEDS: Morphine 2 MG/ML SYRINGE SLOW IVP PRN (21:10)
[2018-05-18] MEDS: Insulin Glargine 8 UNITS in Pre-Filled Syringe 1 EACH SC SCH (21:12)
[2018-05-18 22:01] LABS: Bilirubin Negative (Negative); Blood, Urine Moderate (Negative); Clarity CLEAR (Clear); Glucose, Urine (Dipstick) 250 mg/dL (Negative); Leukocyte Negative (Negative); Nitrite Negative (Negative); Protein, Urine (Dipstick) Negative (Neg-Trace); Specific Gravity, Urine 1.004 (1.002-1.036); Urobilinogen 0.2 mg/dL (0.2-1.0); pH, Urine 6.5 (5.0-9.0)
[2018-05-19] MEDS: traMADol HCl 50 MG TAB PO PRN ×3 (00:11→17:44)
[2018-05-19] MEDS: Levothyroxine Sodium 88 MCG TAB PO SCH (05:11)
[2018-05-19] MEDS: guaiFENesin 200 MG TAB PO SCH ×3 (05:11→22:09)
[2018-05-19 05:56] LABS: Anion Gap 10 mmol/L (10-20); BUN (Urea Nitrogen) 4 mg/dL (9.8-20.1); Calc. Creatinine Clearance 88 mL/min (70-130); Calcium 8.6 mg/dL (7.8-10.44); Carbon Dioxide 24 mmol/L (22-29); Chloride 108 mmol/L (98-107); Estimated GFR-MDRD Greater than 90; Glucose 102 mg/dL (70-105); Potassium 3.7 mmol/L (3.5-5.1); Sodium 138 mmol/L (136-145)
[2018-05-19] MEDS: PROVENTIL INHALER 6.7 G (200 INHALATIONS) INH SCH ×2 (07:02→18:34)
--- NOTE | 2018-05-19 07:16 | PRG ---
DATE OF SERVICE: 05/19/2018 SUBJECTIVE: I saw Ms. Cummins in her hospital room this morning. She is 3 days out from a decompression and fusion of lumbar spine for recurrent lateral recess disease and unstable spondylolisthesis. Ove r the weekend, she had some paresthesias in the anterior thighs, little bit of groin pain on either s iraida and a right great toe with some paresthesias. The back is sore, but the radicular pain is improv ed. This morning, I see a T-max overnight of 98.9 degrees Fahrenheit, pulse is 83, blood pressure is 138/69. She is satting 94% on room air. On examination, there is some hip joint pain with flexion and internal rotation of the hips with lateral femoral cutaneous nerve paresthesias. There is good s trength in the L3, L4, and L5 distributions bilaterally, myotomes bilaterally. Morning labs have not been resulted . Hemoglobin yesterday was a bit low at 7.9. My plan for today is that Ms. Cummins continued to work with physical therapy. We will add a TLSO brace to be used when she is sitting or standing, but should not be used when she is sleeping or reclining. We will have her outpatient case manager to look into inpatient rehabilitation placement and if they have a be tter open today, she can be transferred.
[2018-05-19] MEDS: tiZANidine HCl 4 MG TAB PO PRN ×2 (07:42→17:45)
[2018-05-19] MEDS: metFORMIN 500 MG TAB PO SCH ×2 (07:44→17:45)
[2018-05-19] MEDS: Loratadine 10 MG TAB PO SCH (07:44)
[2018-05-19] MEDS: Escitalopram Oxalate 20 mg Tablet PO SCH (07:45)
[2018-05-19] MEDS: Oxybutynin ER 5 MG TAB PO SCH (07:45)
[2018-05-19] MEDS: Gabapentin 300 MG CAP PO SCH ×3 (07:45→22:06)
--- NOTE | 2018-05-19 09:55 | PDOC.PN ---
- Subjective Encounter Start Date: 05/19/18 Encounter Start Time: 08:20 Patient seen and examined. No new complaints. No overnight events - Objective Resuscitation Status: Resuscitation Status FULL:Full Resuscitation MAR Reviewed: Yes Vital Signs & Weight: Vital Signs (12 hours) Temp Pulse Resp BP BP Pulse Ox 05/19/18 08:26 97.8 F 96 20 168/83 H 97 05/19/18 07:20 98 05/19/18 07:02 96 16 98 05/19/18 04:45 98.8 F 83 20 138/69 94 L 05/18/18 23:58 98.5 F 85 19 136/77 94 L Weight Weight 121 lb I&O: 05/18/18 05/19/18 05/20/18 06:59 06:59 06:59 Intake Total 3785 4060 Balance 3785 4060 Result Diagrams: 05/18/18 08:32 05/19/18 04:50 Additional Labs: Accuchecks 05/19/18 05/18/18 05/18/18 06:02 20:26 15:45 POC Glucose 85 229 H 110 05/18/18 11:20 POC Glucose 135 H Phys Exam - Physical Examination Constitutional: NAD HEENT: PERRLA, moist MMs, sclera anicteric Neck: no JVD, supple Respiratory: no wheezing, no rales, no rhonchi Cardiovascular: RRR, no significant murmur, no rub Gastrointestinal: soft, non-tender, no distention, positive bowel sounds Musculoskeletal: no edema, pulses present Neurological: non-focal, normal sensation, moves all 4 limbs Psychiatric: normal affect, A&O x 3 Skin: no rash, normal turgor Dx/Plan (1) Hypotension Status: Acute (2) S/P lumbar laminectomy Code(s): Z98.890 - OTHER SPECIFIED POSTPROCEDURAL STATES Status: Acute (3) Anxiety and depression Code(s): F41.9 - ANXIETY DISORDER, UNSPECIFIED; F32.9 - MAJOR DEPRESSIVE DISORDER, SINGLE EPISODE, UNSPECIFIED Status: Chronic (4) Asthma Code(s): J45.909 - UNSPECIFIED ASTHMA, UNCOMPLICATED Status: Chronic (5) Diabetes type 2, controlled Code(s): E11.9 - TYPE 2 DIABETES MELLITUS WITHOUT COMPLICATIONS Status: Chronic (6) Dyslipidemia Code(s): E78.5 - HYPERLIPIDEMIA, UNSPECIFIED Status: Chronic (7) GERD (gastroesophageal reflux disease) Code(s): K21.9 - GASTRO-ESOPHAGEAL REFLUX DISEASE WITHOUT ESOPHAGITIS Status: Chronic (8) Hypertension Code(s): I10 - ESSENTIAL (PRIMARY) HYPERTENSION Status: Chronic (9) Hypothyroidism Code(s): E03.9 - HYPOTHYROIDISM, UNSPECIFIED Status: Chronic - Plan cont current plan of care, PT/OT, rn social services * medication reviewed as below * symptomatic treatment * now will start lisinopril 5 mg po daily and metoprolol 50 mg po bid * will need rehab placement * child welfare caseworker is working on it * DC IVF. Review of Systems - Review of Systems Eyes: negative: Pain, Vision Change, Conjunctivae Inflammation, Eyelid Inflammation, Redness, Other ENT: negative: Ear Pain, Ear Discharge, Nose Pain, Nose Discharge, Nose Congestion, Mouth Pain, Mouth Swelling, Throat Pain, Throat Swelling, Other Respiratory: negative: Cough, Dry, Shortness of Breath, Hemoptysis, SOB with Excertion, Pleuritic Pain, Sputum, Wheezing Cardiovascular: negative: chest pain, palpitations, orthopnea, paroxysmal nocturnal dyspnea, edema, light headedness, other Gastrointestinal: negative: Nausea, Vomiting, Abdominal Pain, Diarrhea, Constipation, Melena, Hematochezia, Other Genitourinary: negative: Dysuria, Frequency, Incontinence, Hematuria, Retention , Other Musculoskeletal: Back Pain. negative: Neck Pain, Shoulder Pain, Arm Pain, Hand Pain, Leg Pain, Foot Pain, Other - Medications/Allergies Allergies/Adverse Reactions: Allergies Allergy/AdvReac Type Severity Reaction Status Date / Time acetaminophen [From Tylenol] Allergy Verified 05/13/18 09:01 amitriptyline Allergy Verified 05/13/18 09:01 amoxicillin Allergy Verified 05/13/18 09:01 baclofen Allergy Verified 05/13/18 09:01 ciprofloxacin Allergy Verified 05/13/18 09:01 erythromycin base Allergy Verified 05/13/18 09:01 Estrogens Allergy Verified 05/13/18 09:01 Iodine and Iodide Containing Allergy Verified 05/13/18 09:01 Produc naproxen [From Aleve] Allergy Verified 05/13/18 09:01 Penicillins Allergy Verified 05/13/18 09:01 Tetracyclines Allergy Verified 05/13/18 09:01 Medications: Current Medications Al Hydroxide/Mg Hydroxide (Maalox) 30 ml PO Q4H PRN PRN Reason: Indigestion Last Admin: 05/18/18 11:48 Dose: 30 ml Albuterol Sulfate (Proventil Hfa) 2 puff INH BID-RT [facility] Last Admin: 05/19/18 07:02 Dose: 2 puff Artificial Tears (Tears Naturale) 2 drop EA EYE PRN PRN PRN Reason: Dry Eyes Atorvastatin Calcium (Lipitor) 80 mg PO [facility] Last Admin: 05/18/18 21:04 Dose: 80 mg Bisacodyl (Dulcolax) 10 mg [place] Q12H PRN PRN Reason: Constipation Dextrose/Water (Dextrose 50%) 25 gm SLOW IVP PRN PRN PRN Reason: Hypoglycemia Diphenhydramine HCl (Benadryl) 25 mg IVP Q6H PRN PRN Reason: Itching Diphenhydramine HCl (Benadryl) 25 mg PO Q6H PRN PRN Reason: Itching Doxepin HCl (Sinequan) 25 mg PO [facility] Last Admin: 05/18/18 21:05 Dose: 25 mg Escitalopram Oxalate (Lexapro) 20 mg PO QAM [facility] Last Admin: 05/19/18 07:45 Dose: 20 mg Gabapentin (Neurontin) 600 mg PO TID [facility] Last Admin: 05/19/18 07:45 Dose: 600 mg Glucagon (Glucagon) 1 mg IM PRN PRN PRN Reason: Hypoglycemia Guaifenesin (Organ-I Nr) 200 mg PO Q8HR [facility] Last Admin: 05/19/18 05:11 Dose: 200 mg Guaifenesin (Robitussin Sf) 200 mg PO Q4H PRN PRN Reason: Cough Hydralazine HCl (Apresoline) 10 mg SLOW IVP Q4H PRN PRN Reason: SBP > 180 and HR < 70 Dextrose/Water (D5w) 1,000 mls @ 0 mls/hr IV .Q0M PRN PRN Reason: Hypoglycemia Sodium Chloride (Normal Saline 0.9%) 1,000 mls @ 80 mls/hr IV .[id number] [facility] Last Admin: 05/18/18 17:36 Dose: 1,000 mls Insulin Glargine 8 units/ (Miscellaneous Medication) 0.08 mls @ 0 mls/hr SC [facility] Last Admin: 05/18/18 21:12 Dose: 0.08 mls Insulin Human Lispro (Humalog) 0 units SC .MODERATE SLIDING SC PRN PRN Reason: Moderate Correctional Scale Last Admin: 05/17/18 15:36 Dose: 4 unit Insulin Human Lispro (Humalog) 0 units SC .BEDTIME SLIDING SC PRN PRN Reason: Bedtime Correctional Scale Last Admin: 05/18/18 21:12 Dose: 2 unit Ketorolac Tromethamine (Toradol) 15 mg IVP Q6H PRN PRN Reason: Pain Stop: 05/21/18 12:12 Last Admin: 05/17/18 06:53 Dose: 15 mg Levothyroxine Sodium (Synthroid) 88 mcg PO 0600 [facility] Last Admin: 05/19/18 05:11 Dose: 88 mcg Lisinopril (Zestril) 5 mg PO DAILY [facility] Lisinopril (Zestril) 5 mg PO ONE [facility]ad[facility] ([facility]) [facility] Last Admin: 05/19/18 07:44 Dose: 10 mg Magnesium Hydroxide (Milk Of Magnesium) 30 ml PO Q12H PRN PRN Reason: Constipation Melatonin (Melatonin) 6 mg PO [facility] Last Admin: 05/18/18 21:05 Dose: 6 mg Menthol/Methyl Salicylate (Muscle Rub Cream (Bengay)) 0 gm TOP BID [facility] Last Admin: 05/18/18 21:23 Dose: Not Given Metformin HCl (Glucophage) 1,000 mg PO BID-[facility] Last Admin: 05/19/18 07:44 Dose: 1,000 mg Metoprolol Tartrate (Lopressor) 50 mg PO BID [facility] Metoprolol Tartrate (Lopressor) 50 mg PO ONE [facility] Mineral Oil/White Petrolatum (Lacri-Lube Ointment) 0 gm EA EYE [facility] Last Admin: 05/18/18 21:06 Dose: 0.25 inch Mineral Oil/White Petrolatum (Eucerin Cream) 0 gm TOP BIDPRN PRN PRN Reason: Dry Skin Morphine Sulfate (Morphine) 2 mg SLOW IVP Q1H PRN PRN Reason: Moderate Breakthrough Pain Last Admin: 05/18/18 21:10 Dose: 2 mg Non-Formulary Medication (Symbicort) 2 puff INH BID [facility] Ondansetron HCl (Zofran) 4 mg IVP DAILYPRN PRN PRN Reason: Nausea Last Admin: 05/17/18 02:55 Dose: 4 mg Ondansetron HCl (Zofran Odt) 4 mg PO Q6H PRN PRN Reason: Nausea/Vomiting Oxybutynin Chloride (Ditropan Xl) 5 mg PO DAILY [facility] Last Admin: 05/19/18 07:45 Dose: 5 mg Pantoprazole Sodium (Protonix) 40 mg PO BID [facility] Last Admin: 05/19/18 07:45 Dose: 40 mg Estrogen,Con/M- Progest Acet [ Prempro 0.3 Mg-1.5 Mg Tablet] 0 each PO QAM [facility] Promethazine HCl (Phenergan) 12.5 mg PO Q4H PRN PRN Reason: Nausea/Vomiting Sodium Chloride (Flush - Normal Saline) 10 ml IVF PRN PRN PRN Reason: Saline Flush Throat Lozenges (Cepastat Lozenges) 1 adeline PO Q2H PRN PRN Reason: Sore Throat Tizanidine HCl (Zanaflex) 4 mg PO Q6H PRN PRN Reason: Muscle Spasm Last Admin: 05/19/18 07:42 Dose: 4 mg Tramadol HCl (Ultram) 50 mg PO Q6H PRN PRN Reason: Mild Pain (1-3) Tramadol HCl (Ultram) 100 mg PO Q6H PRN PRN Reason: Moderate Pain (4-6) Last Admin: 05/19/18 07:43 Dose: 100 mg Zolpidem Tartrate (Ambien) 5 mg PO HSPRN PRN PRN Reason: Insomnia
[2018-05-19] MEDS: Methyl Salicylate/Menthol 85 GM TUBE TOP SCH (10:09)
[2018-05-19] MEDS: Sodium Chloride 0.9% 1,000 ML IV SCH (10:09)
[2018-05-19] MEDS ORDERED: Lisinopril 5 MG TAB PO SCH (10:45)
[2018-05-19] MEDS ORDERED: Metoprolol Tartrate 50 MG TAB PO SCH ×2 (10:45→21:00)
[2018-05-19] MEDS: Atorvastatin Calcium 40 MG TAB PO SCH (22:05)
[2018-05-19] MEDS: Doxepin HCl 25 MG CAP PO SCH (22:07)
[2018-05-19] MEDS: Melatonin 3 MG TAB PO SCH (22:08)
[2018-05-19] MEDS: Metoprolol Tartrate 25 MG TAB PO SCH (22:09)
[2018-05-19] MEDS: Lacri-Lube Opth Oint 3.5 GM TUBE EA EYE SCH (22:10)
[2018-05-19] MEDS: Insulin Glargine 8 UNITS in Pre-Filled Syringe 1 EACH SC SCH (22:10)
[2018-05-20] MEDS: Methyl Salicylate/Menthol 85 GM TUBE TOP SCH ×2 (00:10→08:27)
[2018-05-20] MEDS: Sodium Chloride 0.9% 1,000 ML IV SCH (00:11)
[2018-05-20] MEDS: traMADol HCl 50 MG TAB PO PRN ×3 (04:08→21:43)
[2018-05-20] MEDS: tiZANidine HCl 4 MG TAB PO PRN ×3 (04:08→21:44)
[2018-05-20] MEDS: Levothyroxine Sodium 88 MCG TAB PO SCH (05:23)
[2018-05-20] MEDS: guaiFENesin 200 MG TAB PO SCH ×3 (05:23→21:40)
[2018-05-20] MEDS: PROVENTIL INHALER 6.7 G (200 INHALATIONS) INH SCH ×2 (08:13→18:23)
[2018-05-20] MEDS: Morphine 2 MG/ML SYRINGE SLOW IVP PRN ×2 (08:17→17:19)
[2018-05-20] MEDS: metFORMIN 500 MG TAB PO SCH ×2 (08:25→17:19)
[2018-05-20] MEDS: Metoprolol Tartrate 25 MG TAB PO SCH ×2 (08:26→21:42)
[2018-05-20] MEDS: Lisinopril 5 MG TAB PO SCH (08:26)
[2018-05-20] MEDS: Gabapentin 300 MG CAP PO SCH ×3 (08:26→21:42)
[2018-05-20] MEDS: Escitalopram Oxalate 20 mg Tablet PO SCH (08:26)
[2018-05-20] MEDS: Loratadine 10 MG TAB PO SCH (08:27)
--- NOTE | 2018-05-20 09:47 | PDOC.PN ---
- Subjective Encounter Start Date: 05/20/18 Encounter Start Time: 07:30 Patient seen and examined. No new complaints. No overnight events - Objective Resuscitation Status: Resuscitation Status FULL:Full Resuscitation MAR Reviewed: Yes Vital Signs & Weight: Vital Signs (12 hours) Temp Pulse Resp BP BP Pulse Ox 05/20/18 08:26 68 153/71 H 05/20/18 08:00 98.7 F 73 12 153/71 H 97 05/20/18 04:29 98.6 F 68 19 154/84 H 94 L 05/19/18 23:36 98.1 F 66 20 154/83 H 97 05/19/18 22:00 97 Weight Weight 121 lb I&O: 05/19/18 05/20/18 05/21/18 06:59 06:59 06:59 Intake Total 4060 1310 Balance 4060 1310 Result Diagrams: 05/18/18 08:32 05/19/18 04:50 Additional Labs: Accuchecks 05/20/18 05/19/18 05/19/18 06:10 20:54 15:59 POC Glucose 145 H 142 H 110 05/19/18 12:34 POC Glucose 97 Phys Exam - Physical Examination Constitutional: NAD HEENT: PERRLA, moist MMs, sclera anicteric Neck: no JVD, supple Respiratory: no wheezing, no rales, no rhonchi Cardiovascular: RRR, no significant murmur, no rub Gastrointestinal: soft, non-tender, no distention, positive bowel sounds Musculoskeletal: no edema, pulses present Neurological: non-focal, normal sensation, moves all 4 limbs Psychiatric: normal affect, A&O x 3 Skin: no rash, normal turgor Dx/Plan (1) Hypotension Status: Resolved (2) S/P lumbar laminectomy Code(s): Z98.890 - OTHER SPECIFIED POSTPROCEDURAL STATES Status: Acute (3) Anxiety and depression Code(s): F41.9 - ANXIETY DISORDER, UNSPECIFIED; F32.9 - MAJOR DEPRESSIVE DISORDER, SINGLE EPISODE, UNSPECIFIED Status: Chronic (4) Asthma Code(s): J45.909 - UNSPECIFIED ASTHMA, UNCOMPLICATED Status: Chronic (5) Diabetes type 2, controlled Code(s): E11.9 - TYPE 2 DIABETES MELLITUS WITHOUT COMPLICATIONS Status: Chronic (6) Dyslipidemia Code(s): E78.5 - HYPERLIPIDEMIA, UNSPECIFIED Status: Chronic (7) GERD (gastroesophageal reflux disease) Code(s): K21.9 - GASTRO-ESOPHAGEAL REFLUX DISEASE WITHOUT ESOPHAGITIS Status: Chronic (8) Hypertension Code(s): I10 - ESSENTIAL (PRIMARY) HYPERTENSION Status: Chronic (9) Hypothyroidism Code(s): E03.9 - HYPOTHYROIDISM, UNSPECIFIED Status: Chronic (10) Anemia, normocytic normochromic Code(s): D64.9 - ANEMIA, UNSPECIFIED Status: Chronic - Plan cont current plan of care, PT/OT, social welfare clerk * check cbc, iron study, will decide if iron infusion required or not. * medication reviewed as below * symptomatic treatment * await insurance approval for rehab placement * add ferrous sulfate daily Review of Systems - Review of Systems ENT: negative: Ear Pain, Ear Discharge, Nose Pain, Nose Discharge, Nose Congestion, Mouth Pain, Mouth Swelling, Throat Pain, Throat Swelling, Other Respiratory: negative: Cough, Dry, Shortness of Breath, Hemoptysis, SOB with Excertion, Pleuritic Pain, Sputum, Wheezing Cardiovascular: negative: chest pain, palpitations, orthopnea, paroxysmal nocturnal dyspnea, edema, light headedness, other Gastrointestinal: negative: Nausea, Vomiting, Abdominal Pain, Diarrhea, Constipation, Melena, Hematochezia, Other Genitourinary: negative: Dysuria, Frequency, Incontinence, Hematuria, Retention , Other Musculoskeletal: negative: Neck Pain, Shoulder Pain, Arm Pain, Back Pain, Hand Pain, Leg Pain, Foot Pain, Other Skin: negative: Rash, Lesions, Jr, Bruising, Other - Medications/Allergies Allergies/Adverse Reactions: Allergies Allergy/AdvReac Type Severity Reaction Status Date / Time acetaminophen [From Tylenol] Allergy Verified 05/13/18 09:01 amitriptyline Allergy Verified 05/13/18 09:01 amoxicillin Allergy Verified 05/13/18 09:01 baclofen Allergy Verified 05/13/18 09:01 ciprofloxacin Allergy Verified 05/13/18 09:01 erythromycin base Allergy Verified 05/13/18 09:01 Estrogens Allergy Verified 05/13/18 09:01 Iodine and Iodide Containing Allergy Verified 05/13/18 09:01 Produc naproxen [From Aleve] Allergy Verified 05/13/18 09:01 Penicillins Allergy Verified 05/13/18 09:01 Tetracyclines Allergy Verified 05/13/18 09:01 Medications: Current Medications Al Hydroxide/Mg Hydroxide (Maalox) 30 ml PO Q4H PRN PRN Reason: Indigestion Last Admin: 05/18/18 11:48 Dose: 30 ml Albuterol Sulfate (Proventil Hfa) 2 puff INH BID-RT [facility] Last Admin: 05/20/18 08:13 Dose: 2 puff Artificial Tears (Tears Naturale) 2 drop EA EYE PRN PRN PRN Reason: Dry Eyes Atorvastatin Calcium (Lipitor) 80 mg PO [facility] Last Admin: 05/19/18 22:05 Dose: 80 mg Bisacodyl (Dulcolax) 10 mg [place] Q12H PRN PRN Reason: Constipation Dextrose/Water (Dextrose 50%) 25 gm SLOW IVP PRN PRN PRN Reason: Hypoglycemia Diphenhydramine HCl (Benadryl) 25 mg IVP Q6H PRN PRN Reason: Itching Diphenhydramine HCl (Benadryl) 25 mg PO Q6H PRN PRN Reason: Itching Doxepin HCl (Sinequan) 25 mg PO [facility] Last Admin: 05/19/18 22:07 Dose: 25 mg Escitalopram Oxalate (Lexapro) 20 mg PO QAM [facility] Last Admin: 05/20/18 08:26 Dose: 20 mg Gabapentin (Neurontin) 600 mg PO TID [facility] Last Admin: 05/20/18 08:26 Dose: 600 mg Glucagon (Glucagon) 1 mg IM PRN PRN PRN Reason: Hypoglycemia Guaifenesin (Organ-I Nr) 200 mg PO Q8HR [facility] Last Admin: 05/20/18 05:23 Dose: 200 mg Guaifenesin (Robitussin Sf) 200 mg PO Q4H PRN PRN Reason: Cough Hydralazine HCl (Apresoline) 10 mg SLOW IVP Q4H PRN PRN Reason: SBP > 180 and HR < 70 Dextrose/Water (D5w) 1,000 mls @ 0 mls/hr IV .Q0M PRN PRN Reason: Hypoglycemia Insulin Glargine 8 units/ (Miscellaneous Medication) 0.08 mls @ 0 mls/hr SC [facility] Last Admin: 05/19/18 22:10 Dose: 0.08 mls Insulin Human Lispro (Humalog) 0 units SC .MODERATE SLIDING SC PRN PRN Reason: Moderate Correctional Scale Last Admin: 05/17/18 15:36 Dose: 4 unit Insulin Human Lispro (Humalog) 0 units SC .BEDTIME SLIDING SC PRN PRN Reason: Bedtime Correctional Scale Last Admin: 05/18/18 21:12 Dose: 2 unit Levothyroxine Sodium (Synthroid) 88 mcg PO 0600 [facility] Last Admin: 05/20/18 05:23 Dose: 88 mcg Lisinopril (Zestril) 5 mg PO DAILY [facility] Last Admin: 05/20/18 08:26 Dose: 5 mg Loratadine (Claritin) 10 mg PO QAM [facility] Last Admin: 05/20/18 08:27 Dose: 10 mg Magnesium Hydroxide (Milk Of Magnesium) 30 ml PO Q12H PRN PRN Reason: Constipation Melatonin (Melatonin) 6 mg PO HS [facility] Last Admin: 05/19/18 22:08 Dose: 6 mg Menthol/Methyl Salicylate (Muscle Rub Cream (Bengay)) 0 gm TOP BID [facility] Last Admin: 05/20/18 08:27 Dose: Not Given Metformin HCl (Glucophage) 1,000 mg PO BID[facility] Last Admin: 05/20/18 08:25 Dose: 1,000 mg Metoprolol Tartrate (Lopressor) 25 mg PO BID [facility] Last Admin: 05/20/18 08:26 Dose: 25 mg Mineral Oil/White Petrolatum (Lacri-Lube Ointment) 0 gm EA EYE [facility] Last Admin: 05/19/18 22:10 Dose: 0.25 inch Mineral Oil/White Petrolatum (Eucerin Cream) 0 gm TOP BIDPRN PRN PRN Reason: Dry Skin Morphine Sulfate (Morphine) 2 mg SLOW IVP Q1H PRN PRN Reason: Moderate Breakthrough Pain Last Admin: 05/20/18 08:17 Dose: 2 mg Non-Formulary Medication (Symbicort) 2 puff INH BID [facility] Ondansetron HCl (Zofran) 4 mg IVP DAILYPRN PRN PRN Reason: Nausea Last Admin: 05/17/18 02:55 Dose: 4 mg Ondansetron HCl (Zofran Odt) 4 mg PO Q6H PRN PRN Reason: Nausea/Vomiting Oxybutynin Chloride (Ditropan Xl) 5 mg PO DAILY [facility] Last Admin: 05/19/18 07:45 Dose: 5 mg Pantoprazole Sodium (Protonix) 40 mg PO BID [facility] Last Admin: 05/20/18 08:26 Dose: 40 mg Estrogen,Con/M- Progest Acet [ Prempro 0.3 Mg-1.5 Mg Tablet] 0 each PO QAM [facility] Promethazine HCl (Phenergan) 12.5 mg PO Q4H PRN PRN Reason: Nausea/Vomiting Sodium Chloride (Flush - Normal Saline) 10 ml IVF PRN PRN PRN Reason: Saline Flush Last Admin: 05/20/18 08:19 Dose: 10 ml Throat Lozenges (Cepastat Lozenges) 1 adeline PO Q2H PRN PRN Reason: Sore Throat Tizanidine HCl (Zanaflex) 4 mg PO Q6H PRN PRN Reason: Muscle Spasm Last Admin: 05/20/18 04:08 Dose: 4 mg Tramadol HCl (Ultram) 50 mg PO Q6H PRN PRN Reason: Mild Pain (1-3) Tramadol HCl (Ultram) 100 mg PO Q6H PRN PRN Reason: Moderate Pain (4-6) Last Admin: 05/20/18 04:08 Dose: 100 mg Zolpidem Tartrate (Ambien) 5 mg PO HSPRN PRN PRN Reason: Insomnia
[2018-05-20 10:08] LABS: #Basophils 0.1 thou/uL (0.0-0.2); #Eosinphils 0.5 thou/uL (0.0-0.7); #Lymphocytes 2.5 thou/uL (1.20-3.40); #Monocytes 0.7 thou/uL (0.11-0.59); #Neutrophils 5.4 thou/uL (1.40-6.50); %Basophils 1.1 % (0.0-1.0); %Eosinophils 5.1 % (0.0-10.0); %Lymphocytes 27.3 % (21.0-51.0); %Monocytes 7.6 % (0.0-10.0); %Neutrophils 59.1 % (42.0-75.0); Hemoglobin 8.8 g/dL (12.0-16.0); Mean Corpuscular HGB CONC 32.8 g/dL (32.0-36.0); Mean Corpuscular Hemoglobin 31.9 pg (27.0-31.0); Mean Platelet Volume 6.7 fL (7.4-10.4); Platelet Count 380 thou/uL (130-400); Red Blood Cell (RBC) Count 2.78 mill/uL (4.20-5.40); White Blood Cell (WBC) Count 9.2 thou/uL (4.8-10.8)
[2018-05-20 10:31] LABS: Iron 21 ug/dL (50-170); Iron Binding Capacity, Total 290 mcg/dL (265-497)
[2018-05-20] MEDS ORDERED: Iron Sucrose Complex 200 MG in Sodium Chloride 0.9% 250 ML 250 ML IVPB SCH (10:45)
[2018-05-20] MEDS: Oxybutynin ER 5 MG TAB PO SCH (10:55)
[2018-05-20] MEDS ORDERED: Iron, Sodium Ferric Gluconate 250 MG in Sodium Chloride 0.9% 100 ML IVPB SCH (11:30)
[2018-05-20] MEDS: M PROGEST ACET PO SCH ×2 (14:17→14:18)
[2018-05-20] MEDS: ESTROGEN CON PO SCH ×2 (14:17→14:18)
[2018-05-20] MEDS ORDERED: predniSONE 20 MG TAB PO SCH (17:45)
[2018-05-20] MEDS: Calcium Carbonate 500 MG ChewTAB PO PRN (17:49)
[2018-05-20] MEDS: Melatonin 3 MG TAB PO SCH (21:39)
[2018-05-20] MEDS: Atorvastatin Calcium 40 MG TAB PO SCH (21:40)
[2018-05-20] MEDS: Doxepin HCl 25 MG CAP PO SCH (21:41)
[2018-05-20] MEDS: Insulin Glargine 8 UNITS in Pre-Filled Syringe 1 EACH SC SCH (21:45)
[2018-05-20] MEDS: Lacri-Lube Opth Oint 3.5 GM TUBE EA EYE SCH (21:47)
--- NOTE | 2018-05-21 01:51 | PRG ---
DATE OF SERVICE: 05/20/2018 I saw Ms. Cummins in her hospital room this morning in the early hours . She is awake and watching television as I entered the room, she noted she has walked up to about 100 feet yesterday with physic al therapy once, but that she had rest multiple times and doing so. She still needs significant assi stance. We are planning on transferring her to inpatient rehabilitation once bed is available and in surance secured.
[2018-05-21] MEDS: Levothyroxine Sodium 88 MCG TAB PO SCH (06:20)
[2018-05-21] MEDS: guaiFENesin 200 MG TAB PO SCH ×3 (06:20→21:08)
[2018-05-21] MEDS: Methyl Salicylate/Menthol 85 GM TUBE TOP SCH ×3 (06:39→21:11)
--- NOTE | 2018-05-21 07:22 | PRG ---
DATE OF SERVICE: 05/21/2018 Ms. Cummins is 5 days out from decompression fusion lumbar spine. She is awaiting [facility] benefits for inpati ent rehabilitation. She is making some progress, but when the brace is applied too low and too tight she has some upper thigh tingling and numbness. When it is higher she does not have those symptoms. The pain for which she sought surgical attention is better. She is not quite independent for activ ities of daily living and needs more help. We will await rehab placement.
[2018-05-21] MEDS: PROVENTIL INHALER 6.7 G (200 INHALATIONS) INH SCH ×2 (08:05→18:43)
[2018-05-21] MEDS: traMADol HCl 50 MG TAB PO PRN ×2 (08:19→18:17)
[2018-05-21] MEDS: Ferrous Sulfate 325 MG TAB PO SCH (08:20)
[2018-05-21] MEDS: tiZANidine HCl 4 MG TAB PO PRN ×2 (08:20→18:18)
[2018-05-21] MEDS: metFORMIN 500 MG TAB PO SCH ×2 (08:20→17:33)
[2018-05-21] MEDS: Escitalopram Oxalate 20 mg Tablet PO SCH (08:21)
[2018-05-21] MEDS: Lisinopril 5 MG TAB PO SCH (08:21)
[2018-05-21] MEDS: Gabapentin 300 MG CAP PO SCH ×3 (08:21→21:10)
[2018-05-21] MEDS: Loratadine 10 MG TAB PO SCH (08:21)
[2018-05-21] MEDS: Metoprolol Tartrate 25 MG TAB PO SCH ×2 (08:22→21:10)
[2018-05-21] MEDS: Oxybutynin ER 5 MG TAB PO SCH (08:22)
[2018-05-21] MEDS: M PROGEST ACET PO SCH (08:31)
[2018-05-21] MEDS: ESTROGEN CON PO SCH (08:31)
--- NOTE | 2018-05-21 10:20 | PDOC.PN ---
- Subjective Encounter Start Date: 05/21/18 Encounter Start Time: 08:30 Patient seen and examined. No new complaints. No overnight events - Objective Resuscitation Status: Resuscitation Status FULL:Full Resuscitation MAR Reviewed: Yes Vital Signs & Weight: Vital Signs (12 hours) Temp Pulse Resp BP BP BP Pulse Ox 05/21/18 08:21 68 161/71 H 05/21/18 08:05 78 16 99 05/21/18 07:47 97.9 F 68 18 161/77 H 98 05/21/18 04:52 98.1 F 68 20 138/66 94 L 05/21/18 00:33 98 F 65 19 112/61 96 Weight Weight 121 lb I&O: 05/20/18 05/21/18 05/22/18 06:59 06:59 06:59 Intake Total 1310 1600 Balance 1310 1600 Result Diagrams: 05/20/18 09:57 05/19/18 04:50 Additional Labs: Accuchecks 05/21/18 05/20/18 05/20/18 05:48 20:52 15:38 POC Glucose 109 140 H 101 05/20/18 11:15 POC Glucose 117 H Phys Exam - Physical Examination Constitutional: NAD HEENT: PERRLA, moist MMs, sclera anicteric Neck: no JVD, supple Respiratory: no wheezing, no rales, no rhonchi Cardiovascular: RRR, no significant murmur, no rub Gastrointestinal: soft, non-tender, no distention, positive bowel sounds Musculoskeletal: no edema, pulses present Neurological: non-focal, normal sensation, moves all 4 limbs Psychiatric: normal affect, A&O x 3 Skin: no rash, normal turgor Dx/Plan (1) Hypotension Status: Resolved (2) S/P lumbar laminectomy Code(s): Z98.890 - OTHER SPECIFIED POSTPROCEDURAL STATES Status: Acute (3) Anxiety and depression Code(s): F41.9 - ANXIETY DISORDER, UNSPECIFIED; F32.9 - MAJOR DEPRESSIVE DISORDER, SINGLE EPISODE, UNSPECIFIED Status: Chronic (4) Asthma Code(s): J45.909 - UNSPECIFIED ASTHMA, UNCOMPLICATED Status: Chronic (5) Diabetes type 2, controlled Code(s): E11.9 - TYPE 2 DIABETES MELLITUS WITHOUT COMPLICATIONS Status: Chronic (6) Dyslipidemia Code(s): E78.5 - HYPERLIPIDEMIA, UNSPECIFIED Status: Chronic (7) GERD (gastroesophageal reflux disease) Code(s): K21.9 - GASTRO-ESOPHAGEAL REFLUX DISEASE WITHOUT ESOPHAGITIS Status: Chronic (8) Hypertension Code(s): I10 - ESSENTIAL (PRIMARY) HYPERTENSION Status: Chronic (9) Hypothyroidism Code(s): E03.9 - HYPOTHYROIDISM, UNSPECIFIED Status: Chronic (10) Anemia, normocytic normochromic Code(s): D64.9 - ANEMIA, UNSPECIFIED Status: Chronic - Plan cont current plan of care, PT/OT, social services aide * medication reviewed as below * symptomatic treatment * medically stable * await rehab placement pending insurance approval. Review of Systems - Review of Systems ENT: negative: Ear Pain, Ear Discharge, Nose Pain, Nose Discharge, Nose Congestion, Mouth Pain, Mouth Swelling, Throat Pain, Throat Swelling, Other Respiratory: negative: Cough, Dry, Shortness of Breath, Hemoptysis, SOB with Excertion, Pleuritic Pain, Sputum, Wheezing Cardiovascular: negative: chest pain, palpitations, orthopnea, paroxysmal nocturnal dyspnea, edema, light headedness, other Gastrointestinal: negative: Nausea, Vomiting, Abdominal Pain, Diarrhea, Constipation, Melena, Hematochezia, Other Genitourinary: negative: Dysuria, Frequency, Incontinence, Hematuria, Retention , Other Musculoskeletal: negative: Neck Pain, Shoulder Pain, Arm Pain, Back Pain, Hand Pain, Leg Pain, Foot Pain, Other Skin: negative: Rash, Lesions, Jr, Bruising, Other - Medications/Allergies Allergies/Adverse Reactions: Allergies Allergy/AdvReac Type Severity Reaction Status Date / Time acetaminophen [From Tylenol] Allergy Verified 05/13/18 09:01 amitriptyline Allergy Verified 05/13/18 09:01 amoxicillin Allergy Verified 05/13/18 09:01 baclofen Allergy Verified 05/13/18 09:01 ciprofloxacin Allergy Verified 05/13/18 09:01 erythromycin base Allergy Verified 05/13/18 09:01 Estrogens Allergy Verified 05/13/18 09:01 Iodine and Iodide Containing Allergy Verified 05/13/18 09:01 Produc naproxen [From Aleve] Allergy Verified 05/13/18 09:01 Penicillins Allergy Verified 05/13/18 09:01 Tetracyclines Allergy Verified 05/13/18 09:01 Medications: Current Medications Al Hydroxide/Mg Hydroxide (Maalox) 30 ml PO Q4H PRN PRN Reason: Indigestion Last Admin: 05/18/18 11:48 Dose: 30 ml Albuterol Sulfate (Proventil Hfa) 2 puff INH BID-RT [facility] Last Admin: 05/21/18 08:05 Dose: 2 puff Artificial Tears (Tears Naturale) 2 drop EA EYE PRN PRN PRN Reason: Dry Eyes Atorvastatin Calcium (Lipitor) 80 mg PO HS [facility] Last Admin: 05/20/18 21:40 Dose: 80 mg Bisacodyl (Dulcolax) 10 mg [place] Q12H PRN PRN Reason: Constipation Calcium Carbonate (Tums) 500 mg PO Q6H PRN PRN Reason: .INDIGESTION Last Admin: 05/20/18 17:49 Dose: 500 mg Dextrose/Water (Dextrose 50%) 25 gm SLOW IVP PRN PRN PRN Reason: Hypoglycemia Diphenhydramine HCl (Benadryl) 25 mg IVP Q6H PRN PRN Reason: Itching Diphenhydramine HCl (Benadryl) 25 mg PO Q6H PRN PRN Reason: Itching Last Admin: 05/20/18 17:27 Dose: 25 mg Doxepin HCl (Sinequan) 25 mg PO [facility] Last Admin: 05/20/18 21:41 Dose: 25 mg Escitalopram Oxalate (Lexapro) 20 mg PO QAM [facility] Last Admin: 05/21/18 08:21 Dose: 20 mg Ferrous Sulfate (Feosol) 325 mg PO QAM[facility] Last Admin: 05/21/18 08:20 Dose: 325 mg Gabapentin (Neurontin) 600 mg PO TID [facility] Last Admin: 05/21/18 08:21 Dose: 600 mg Glucagon (Glucagon) 1 mg IM PRN PRN PRN Reason: Hypoglycemia Guaifenesin (Organ-I Nr) 200 mg PO Q8HR [facility] Last Admin: 05/21/18 06:20 Dose: 200 mg Guaifenesin (Robitussin Sf) 200 mg PO Q4H PRN PRN Reason: Cough Hydralazine HCl (Apresoline) 10 mg SLOW IVP Q4H PRN PRN Reason: SBP > 180 and HR < 70 Last Admin: 05/20/18 18:17 Dose: 10 mg Dextrose/Water (D5w) 1,000 mls @ 0 mls/hr IV .Q0M PRN PRN Reason: Hypoglycemia Insulin Glargine 8 units/ (Miscellaneous Medication) 0.08 mls @ 0 mls/hr SC [facility] Last Admin: 05/20/18 21:45 Dose: 0.08 mls Insulin Human Lispro (Humalog) 0 units SC .MODERATE SLIDING SC PRN PRN Reason: Moderate Correctional Scale Last Admin: 05/17/18 15:36 Dose: 4 unit Insulin Human Lispro (Humalog) 0 units SC .BEDTIME SLIDING SC PRN PRN Reason: Bedtime Correctional Scale Last Admin: 05/18/18 21:12 Dose: 2 unit Levothyroxine Sodium (Synthroid) 88 mcg PO 0600 [facility] Last Admin: 05/21/18 06:20 Dose: 88 mcg Lisinopril (Zestril) 5 mg PO DAILY [facility] Last Admin: 05/21/18 08:21 Dose: 5 mg Loratadine (Claritin) [facility] [place] Last Admin: 05/21/18 08:21 Dose: 10 mg Magnesium Hydroxide (Milk Of Magnesium) 30 ml PO Q12H PRN PRN Reason: Constipation Melatonin (Melatonin) 6 mg PO [facility] Last Admin: 05/20/18 21:39 Dose: 6 mg Menthol/Methyl Salicylate (Muscle Rub Cream (Bengay)) 0 gm TOP BID [facility] Last Admin: 05/21/18 08:21 Dose: Not Given Metformin HCl (Glucophage) 1,000 mg PO BID-[facility] Last Admin: 05/21/18 08:20 Dose: 1,000 mg Metoprolol Tartrate (Lopressor) 25 mg PO BID [facility] Last Admin: 05/21/18 08:22 Dose: 25 mg Mineral Oil/White Petrolatum (Lacri-Lube Ointment) 0 gm EA EYE [facility] Last Admin: 05/20/18 21:47 Dose: Not Given Mineral Oil/White Petrolatum (Eucerin Cream) 0 gm TOP BIDPRN PRN PRN Reason: Dry Skin Morphine Sulfate (Morphine) 2 mg SLOW IVP Q1H PRN PRN Reason: Moderate Breakthrough Pain Last Admin: 05/20/18 17:19 Dose: 2 mg Non-Formulary Medication (Symbicort) 2 puff INH BID [facility] Ondansetron HCl (Zofran) 4 mg IVP DAILYPRN PRN PRN Reason: Nausea Last Admin: 05/17/18 02:55 Dose: 4 mg Ondansetron HCl (Zofran Odt) 4 mg PO Q6H PRN PRN Reason: Nausea/Vomiting Oxybutynin Chloride (Ditropan Xl) 5 mg PO DAILY [facility] Last Admin: 05/21/18 08:22 Dose: 5 mg Pantoprazole Sodium (Protonix) 40 mg PO BID [facility] Last Admin: 05/21/18 08:21 Dose: 40 mg Estrogen,Con/M- Progest Acet [ Prempro 0.3 Mg-1.5 Mg Tablet] 0 each PO QAM [facility] Last Admin: 05/21/18 08:31 Dose: 1 each Promethazine HCl (Phenergan) 12.5 mg PO Q4H PRN PRN Reason: Nausea/Vomiting Sodium Chloride (Flush - Normal Saline) 10 ml IVF PRN PRN PRN Reason: Saline Flush Last Admin: 05/20/18 08:19 Dose: 10 ml Throat Lozenges (Cepastat Lozenges) 1 adeline PO Q2H PRN PRN Reason: Sore Throat Tizanidine HCl (Zanaflex) 4 mg PO Q6H PRN PRN Reason: Muscle Spasm Last Admin: 05/21/18 08:20 Dose: 4 mg Tramadol HCl (Ultram) 50 mg PO Q6H PRN PRN Reason: Mild Pain (1-3) Tramadol HCl (Ultram) 100 mg PO Q6H PRN PRN Reason: Moderate Pain (4-6) Last Admin: 05/21/18 08:19 Dose: 100 mg Zolpidem Tartrate (Ambien) 5 mg PO HSPRN PRN PRN Reason: Insomnia
[2018-05-21] MEDS: Morphine 2 MG/ML SYRINGE SLOW IVP PRN (11:17)
[2018-05-21] MEDS: Melatonin 3 MG TAB PO SCH (21:08)
[2018-05-21] MEDS: Doxepin HCl 25 MG CAP PO SCH (21:09)
[2018-05-21] MEDS: Atorvastatin Calcium 40 MG TAB PO SCH (21:09)
[2018-05-21] MEDS: Insulin Glargine 8 UNITS in Pre-Filled Syringe 1 EACH SC SCH (21:11)
[2018-05-21] MEDS: Calcium Carbonate 500 MG ChewTAB PO PRN (21:18)
[2018-05-21] MEDS: Lacri-Lube Opth Oint 3.5 GM TUBE EA EYE SCH (21:40)
[2018-05-22] MEDS: tiZANidine HCl 4 MG TAB PO PRN ×4 (00:53→22:20)
[2018-05-22] MEDS: traMADol HCl 50 MG TAB PO PRN ×3 (00:55→16:45)
[2018-05-22] MEDS: Morphine 2 MG/ML SYRINGE SLOW IVP PRN ×2 (05:22→22:20)
[2018-05-22] MEDS: Levothyroxine Sodium 88 MCG TAB PO SCH (05:22)
[2018-05-22] MEDS: guaiFENesin 200 MG TAB PO SCH ×3 (05:22→22:20)
[2018-05-22] MEDS: PROVENTIL INHALER 6.7 G (200 INHALATIONS) INH SCH ×2 (07:23→19:33)
--- NOTE | 2018-05-22 07:45 | PRG ---
DATE OF SERVICE: 05/22/2018 SUBJECTIVE: Ms. Cummins is still in the hospital 6 days after decompression and fusion of lumbar spine. She is [facility]. Once a bed is available, she can be transferred. Ms. Cummins has been ambulatory with significant assistance and would benefit from continued physical the rapy before returning home where she will have to be independent for all her activities of daily arely ng. Today, I think we will get an ultrasound of lower extremities.
[2018-05-22] MEDS: ESTROGEN CON PO SCH (09:04)
[2018-05-22] MEDS: Escitalopram Oxalate 20 mg Tablet PO SCH (09:04)
[2018-05-22] MEDS: M PROGEST ACET PO SCH (09:04)
[2018-05-22] MEDS: Oxybutynin ER 5 MG TAB PO SCH (09:05)
[2018-05-22] MEDS: Loratadine 10 MG TAB PO SCH (09:05)
[2018-05-22] MEDS: Lisinopril 5 MG TAB PO SCH (09:05)
[2018-05-22] MEDS: Ferrous Sulfate 325 MG TAB PO SCH (09:05)
[2018-05-22] MEDS: Gabapentin 300 MG CAP PO SCH ×3 (09:05→20:37)
[2018-05-22] MEDS: metFORMIN 500 MG TAB PO SCH ×2 (09:06→17:53)
[2018-05-22] MEDS: Metoprolol Tartrate 25 MG TAB PO SCH ×2 (09:10→20:37)
[2018-05-22] MEDS: Methyl Salicylate/Menthol 85 GM TUBE TOP SCH ×2 (09:10→20:38)
--- NOTE | 2018-05-22 09:29 | PDOC.PN ---
- Subjective Encounter Start Date: 05/22/18 Encounter Start Time: 08:00 Patient seen and examined. No new complaints. No overnight events - Objective Resuscitation Status: Resuscitation Status FULL:Full Resuscitation MAR Reviewed: Yes Vital Signs & Weight: Vital Signs (12 hours) Temp Pulse Resp BP BP Pulse Ox 05/22/18 09:05 76 162/59 H 05/22/18 08:00 94 L 05/22/18 07:56 97.7 F 76 20 162/59 H 99 05/22/18 04:00 98.2 F 62 16 131/63 93 L Weight Weight 121 lb I&O: 05/21/18 05/22/18 05/23/18 06:59 06:59 06:59 Intake Total 1600 2150 Balance 1600 2150 Result Diagrams: 05/20/18 09:57 05/19/18 04:50 Additional Labs: Accuchecks 05/22/18 05/21/18 05/21/18 05:08 19:46 16:30 POC Glucose 116 H 125 H 92 05/21/18 12:05 POC Glucose 132 H Phys Exam - Physical Examination Constitutional: NAD HEENT: PERRLA, moist MMs, sclera anicteric Neck: no JVD, supple Respiratory: no wheezing, no rales, no rhonchi Cardiovascular: RRR, no significant murmur, no rub Gastrointestinal: soft, non-tender, no distention, positive bowel sounds Musculoskeletal: no edema, pulses present Neurological: non-focal, normal sensation, moves all 4 limbs Psychiatric: normal affect, A&O x 3 Skin: no rash, normal turgor Dx/Plan (1) Hypotension Status: Resolved (2) S/P lumbar laminectomy Code(s): Z98.890 - OTHER SPECIFIED POSTPROCEDURAL STATES Status: Acute (3) Anxiety and depression Code(s): F41.9 - ANXIETY DISORDER, UNSPECIFIED; F32.9 - MAJOR DEPRESSIVE DISORDER, SINGLE EPISODE, UNSPECIFIED Status: Chronic (4) Asthma Code(s): J45.909 - UNSPECIFIED ASTHMA, UNCOMPLICATED Status: Chronic (5) Diabetes type 2, controlled Code(s): E11.9 - TYPE 2 DIABETES MELLITUS WITHOUT COMPLICATIONS Status: Chronic (6) Dyslipidemia Code(s): E78.5 - HYPERLIPIDEMIA, UNSPECIFIED Status: Chronic (7) GERD (gastroesophageal reflux disease) Code(s): K21.9 - GASTRO-ESOPHAGEAL REFLUX DISEASE WITHOUT ESOPHAGITIS Status: Chronic (8) Hypertension Code(s): I10 - ESSENTIAL (PRIMARY) HYPERTENSION Status: Chronic (9) Hypothyroidism Code(s): E03.9 - HYPOTHYROIDISM, UNSPECIFIED Status: Chronic (10) Anemia, normocytic normochromic Code(s): D64.9 - ANEMIA, UNSPECIFIED Status: Chronic - Plan cont current plan of care, PT/OT, transition social worker * once rehab arranged, pt is medically stable for discharge * medication reviewed as below * symptomatic treatment. Review of Systems - Review of Systems ENT: negative: Ear Pain, Ear Discharge, Nose Pain, Nose Discharge, Nose Congestion, Mouth Pain, Mouth Swelling, Throat Pain, Throat Swelling, Other Respiratory: negative: Cough, Dry, Shortness of Breath, Hemoptysis, SOB with Excertion, Pleuritic Pain, Sputum, Wheezing Cardiovascular: negative: chest pain, palpitations, orthopnea, paroxysmal nocturnal dyspnea, edema, light headedness, other Gastrointestinal: negative: Nausea, Vomiting, Abdominal Pain, Diarrhea, Constipation, Melena, Hematochezia, Other Genitourinary: negative: Dysuria, Frequency, Incontinence, Hematuria, Retention , Other Musculoskeletal: negative: Neck Pain, Shoulder Pain, Arm Pain, Back Pain, Hand Pain, Leg Pain, Foot Pain, Other Skin: negative: Rash, Lesions, Jr, Bruising, Other - Medications/Allergies Allergies/Adverse Reactions: Allergies Allergy/AdvReac Type Severity Reaction Status Date / Time acetaminophen [From Tylenol] Allergy Verified 05/13/18 09:01 amitriptyline Allergy Verified 05/13/18 09:01 amoxicillin Allergy Verified 05/13/18 09:01 baclofen Allergy Verified 05/13/18 09:01 ciprofloxacin Allergy Verified 05/13/18 09:01 erythromycin base Allergy Verified 05/13/18 09:01 Estrogens Allergy Verified 05/13/18 09:01 Iodine and Iodide Containing Allergy Verified 05/13/18 09:01 Produc naproxen [From Aleve] Allergy Verified 05/13/18 09:01 Penicillins Allergy Verified 05/13/18 09:01 Tetracyclines Allergy Verified 05/13/18 09:01 Medications: Current Medications Al Hydroxide/Mg Hydroxide (Maalox) 30 ml PO Q4H PRN PRN Reason: Indigestion Last Admin: 05/18/18 11:48 Dose: 30 ml Albuterol Sulfate (Proventil Hfa) 2 puff INH BID-RT [facility] Last Admin: 05/22/18 07:23 Dose: 2 puff Artificial Tears (Tears Naturale) 2 drop EA EYE PRN PRN PRN Reason: Dry Eyes Atorvastatin Calcium (Lipitor) 80 mg PO HS [facility] Last Admin: 05/21/18 21:09 Dose: 80 mg Bisacodyl (Dulcolax) 10 mg HI Q12H PRN PRN Reason: Constipation Calcium Carbonate (Tums) 500 mg PO Q6H PRN PRN Reason: .INDIGESTION Last Admin: 05/21/18 21:18 Dose: 500 mg Dextrose/Water (Dextrose 50%) 25 gm SLOW IVP PRN PRN PRN Reason: Hypoglycemia Diphenhydramine HCl (Benadryl) 25 mg IVP Q6H PRN PRN Reason: Itching Diphenhydramine HCl (Benadryl) 25 mg PO Q6H PRN PRN Reason: Itching Last Admin: 05/20/18 17:27 Dose: 25 mg Doxepin HCl (Sinequan) [address] [facility] Last Admin: 05/21/18 21:09 Dose: 25 mg Escitalopram [facility]alate ([facility]apro) [facility] [place] Last Admin: 05/22/18 09:04 Dose: 20 mg Ferrous Sulfate (Feosol) 325 mg PO QAM-[facility] Last Admin: 05/22/18 09:05 Dose: 325 mg Gabapentin (Neurontin) 600 mg PO TID [facility] Last Admin: 05/22/18 09:05 Dose: 600 mg Glucagon (Glucagon) 1 mg IM PRN PRN PRN Reason: Hypoglycemia Guaifenesin (Organ-I Nr) 200 mg PO Q8HR [facility] Last Admin: 05/22/18 05:22 Dose: 200 mg Guaifenesin (Robitussin Sf) 200 mg PO Q4H PRN PRN Reason: Cough Hydralazine HCl (Apresoline) 10 mg SLOW IVP Q4H PRN PRN Reason: SBP > 180 and HR < 70 Last Admin: 05/20/18 18:17 Dose: 10 mg Dextrose/Water (D5w) 1,000 mls @ 0 mls/hr IV .Q0M PRN PRN Reason: Hypoglycemia Insulin Glargine 8 units/ (Miscellaneous Medication) 0.08 mls @ 0 mls/hr SC [facility] Last Admin: 05/21/18 21:11 Dose: 0.08 mls Insulin Human Lispro (Humalog) 0 units SC .MODERATE SLIDING SC PRN PRN Reason: Moderate Correctional Scale Last Admin: 05/17/18 15:36 Dose: 4 unit Insulin Human Lispro (Humalog) 0 units SC .BEDTIME SLIDING SC PRN PRN Reason: Bedtime Correctional Scale Last Admin: 05/18/18 21:12 Dose: 2 unit Levothyroxine Sodium (Synthroid) 88 mcg PO 0600 [facility] Last Admin: 05/22/18 05:22 Dose: 88 mcg Lisinopril (Zestril) 5 mg PO DAILY [facility] Last Admin: 05/22/18 09:05 Dose: 5 mg Loratadine (Claritin) [facility] [place] Last Admin: 05/22/18 09:05 Dose: 10 mg Magnesium Hydroxide (Milk Of Magnesium) 30 ml PO Q12H PRN PRN Reason: Constipation Melatonin (Melatonin) [address] [facility] Last Admin: 05/21/18 21:08 Dose: 6 mg Menthol/Methyl Salicylate (Muscle Rub Cream (Bengay)) 0 gm TOP BID [facility] Last Admin: 05/22/18 09:10 Dose: Not Given Metformin HCl (Glucophage) 1,000 mg PO BID-[facility] Last Admin: 05/22/18 09:06 Dose: 1,000 mg Metoprolol Tartrate (Lopressor) 25 mg PO BID [facility] Last Admin: 05/22/18 09:10 Dose: 25 mg Mineral Oil/White Petrolatum (Lacri-Lube Ointment) [address] [facility] Last Admin: 05/21/18 21:40 Dose: Not Given Mineral Oil/White Petrolatum (Eucerin Cream) 0 gm TOP BIDPRN PRN PRN Reason: Dry Skin Morphine Sulfate (Morphine) 2 mg SLOW IVP Q1H PRN PRN Reason: Moderate Breakthrough Pain Last Admin: 05/22/18 05:22 Dose: 2 mg Non-Formulary Medication (Symbicort) 2 puff INH BID [facility] Ondansetron HCl (Zofran) 4 mg IVP DAILYPRN PRN PRN Reason: Nausea Last Admin: 05/17/18 02:55 Dose: 4 mg Ondansetron HCl (Zofran Odt) 4 mg PO Q6H PRN PRN Reason: Nausea/Vomiting Oxybutynin Chloride (Ditropan Xl) 5 mg PO DAILY [facility] Last Admin: 05/22/18 09:05 Dose: 5 mg Pantoprazole Sodium (Protonix) 40 mg PO BID [facility] Last Admin: 05/22/18 09:05 Dose: 40 mg Estrogen,Con/M- Progest Acet [ Prempro 0.3 Mg-1.5 Mg Tablet] 0 each PO QAM [facility] Last Admin: 05/22/18 09:04 Dose: 1 each Promethazine HCl (Phenergan) 12.5 mg PO Q4H PRN PRN Reason: Nausea/Vomiting Sodium Chloride (Flush - Normal Saline) 10 ml IVF PRN PRN PRN Reason: Saline Flush Last Admin: 05/21/18 11:17 Dose: 10 ml Throat Lozenges (Cepastat Lozenges) 1 adeline PO Q2H PRN PRN Reason: Sore Throat Tizanidine HCl (Zanaflex) 4 mg PO Q6H PRN PRN Reason: Muscle Spasm Last Admin: 05/22/18 00:53 Dose: 4 mg Tramadol HCl (Ultram) 50 mg PO Q6H PRN PRN Reason: Mild Pain (1-3) Tramadol HCl (Ultram) 100 mg PO Q6H PRN PRN Reason: Moderate Pain (4-6) Last Admin: 05/22/18 00:55 Dose: 100 mg Zolpidem Tartrate (Ambien) 5 mg PO HSPRN PRN PRN Reason: Insomnia
--- NOTE | 2018-05-22 10:21 | ULT ---
BILATERAL LOWER EXTREMITY VENOUS DOPPLER ULTRASOUND: HISTORY: Status post spine surgery, limited mobility, left lower extremity pain, minimal bilateral lower extre mity edema. TECHNIQUE: Brizuela scale, color flow, and spectral Doppler imaging of the deep venous systems of the lower extremit y is performed bilaterally. FINDINGS: There is good flow, compression, and augmentation noted in the common femoral, femoral, deep femoral, popliteal, posterior tibial, and greater saphenous veins on either side. IMPRESSION: No evidence of deep vein thrombosis in the left lower extremity. POS: ADALBERTO
[2018-05-22] MEDS: Calcium Carbonate 500 MG ChewTAB PO PRN ×2 (16:50→22:20)
[2018-05-22] MEDS: Mag-Al 1200 mg/1200 mg/30 ML UDCUP PO PRN ×2 (18:22→22:20)
[2018-05-22] MEDS: Doxepin HCl 25 MG CAP PO SCH (20:36)
[2018-05-22] MEDS: Atorvastatin Calcium 40 MG TAB PO SCH (20:36)
[2018-05-22] MEDS: Insulin Glargine 8 UNITS in Pre-Filled Syringe 1 EACH SC SCH (20:37)
[2018-05-22] MEDS: Melatonin 3 MG TAB PO SCH (20:37)
[2018-05-22] MEDS: Lacri-Lube Opth Oint 3.5 GM TUBE EA EYE SCH (20:38)
[2018-05-23] MEDS: guaiFENesin 200 MG TAB PO SCH ×2 (06:04→14:43)
[2018-05-23] MEDS: Levothyroxine Sodium 88 MCG TAB PO SCH (06:04)
--- NOTE | 2018-05-23 07:01 | PRG ---
DATE OF SERVICE: 05/23/2018 SUBJECTIVE: Ms. Cummins is still in the hospital. She is 7 days out from decompression and fusion of ynes mbar spine. She is awaiting [facility] benefits approval for inpatient rehabilitation and remains under our care until then. An ultrasound venogram yesterday was negative for DVT. Her vital signs and neurological examination is stable this morning. For today, Ms. Cummins still await VA approval for benefits covering inpatient rehabilitation and once ose are arranged, she can be transferred. She is complaining of her gastroesophageal reflux and ment ions that at home sometimes she takes rabeprazole and I will make sure with medical team that is an a dvisable medication for inpatient use. She can be discharged anytime. Prescriptions were left on e chart and followup arrangements have been made.
[2018-05-23] MEDS: PROVENTIL INHALER 6.7 G (200 INHALATIONS) INH SCH (07:13)
[2018-05-23] MEDS: Loratadine 10 MG TAB PO SCH (08:40)
[2018-05-23] MEDS: Oxybutynin ER 5 MG TAB PO SCH (08:40)
[2018-05-23] MEDS: Gabapentin 300 MG CAP PO SCH ×2 (08:41→14:19)
[2018-05-23] MEDS: Lisinopril 5 MG TAB PO SCH (08:41)
[2018-05-23] MEDS: M PROGEST ACET PO SCH ×2 (08:42→08:44)
[2018-05-23] MEDS: metFORMIN 500 MG TAB PO SCH ×2 (08:42→17:04)
[2018-05-23] MEDS: ESTROGEN CON PO SCH ×2 (08:42→08:44)
[2018-05-23] MEDS: Escitalopram Oxalate 20 mg Tablet PO SCH (08:43)
[2018-05-23] MEDS: Ferrous Sulfate 325 MG TAB PO SCH (08:43)
[2018-05-23] MEDS: Metoprolol Tartrate 25 MG TAB PO SCH (08:44)
[2018-05-23] MEDS: Methyl Salicylate/Menthol 85 GM TUBE TOP SCH (08:45)
[2018-05-23] MEDS: tiZANidine HCl 4 MG TAB PO PRN ×2 (09:46→17:04)
[2018-05-23] MEDS: traMADol HCl 50 MG TAB PO PRN ×2 (09:52→17:04)
--- NOTE | 2018-05-23 11:01 | PDOC.PN ---
- Subjective Encounter Start Date: 05/23/18 Encounter Start Time: 08:45 Patient seen and examined. No new complaints. No overnight events - Objective Resuscitation Status: Resuscitation Status FULL:Full Resuscitation MAR Reviewed: Yes Vital Signs & Weight: Vital Signs (12 hours) Temp Pulse Resp BP BP Pulse Ox 05/23/18 08:08 98.0 F 74 14 152/89 H 95 05/23/18 04:00 98.3 F 66 16 147/73 H 95 05/23/18 00:00 98.0 F 81 16 114/59 L 97 Weight Weight 121 lb I&O: 05/22/18 05/23/18 05/24/18 06:59 06:59 06:59 Intake Total 2149 2109 Balance 2149 2109 Result Diagrams: 05/20/18 09:57 05/19/18 04:50 Additional Labs: Accuchecks 05/23/18 05/22/18 05/22/18 06:24 20:33 15:53 POC Glucose 97 104 96 05/22/18 11:13 POC Glucose 152 H Phys Exam - Physical Examination Constitutional: NAD HEENT: PERRLA, moist MMs, sclera anicteric Neck: no JVD, supple Respiratory: no wheezing, no rales, no rhonchi Cardiovascular: RRR, no significant murmur, no rub Gastrointestinal: soft, non-tender, no distention, positive bowel sounds Musculoskeletal: no edema, pulses present Neurological: non-focal, normal sensation, moves all 4 limbs Psychiatric: normal affect, A&O x 3 Skin: no rash, normal turgor Dx/Plan (1) S/P lumbar laminectomy Code(s): Z98.890 - OTHER SPECIFIED POSTPROCEDURAL STATES Status: Acute (2) Hypotension Status: Resolved (3) Anxiety and depression Code(s): F41.9 - ANXIETY DISORDER, UNSPECIFIED; F32.9 - MAJOR DEPRESSIVE DISORDER, SINGLE EPISODE, UNSPECIFIED Status: Chronic (4) Asthma Code(s): J45.909 - UNSPECIFIED ASTHMA, UNCOMPLICATED Status: Chronic (5) Diabetes type 2, controlled Code(s): E11.9 - TYPE 2 DIABETES MELLITUS WITHOUT COMPLICATIONS Status: Chronic (6) Dyslipidemia Code(s): E78.5 - HYPERLIPIDEMIA, UNSPECIFIED Status: Chronic (7) GERD (gastroesophageal reflux disease) Code(s): K21.9 - GASTRO-ESOPHAGEAL REFLUX DISEASE WITHOUT ESOPHAGITIS Status: Chronic Qualifiers: Esophagitis presence: without esophagitis Qualified Code(s): K21.9 - Gastro -esophageal reflux disease without esophagitis (8) Hypertension Code(s): I10 - ESSENTIAL (PRIMARY) HYPERTENSION Status: Chronic (9) Hypothyroidism Code(s): E03.9 - HYPOTHYROIDISM, UNSPECIFIED Status: Chronic (10) Anemia, normocytic normochromic Code(s): D64.9 - ANEMIA, UNSPECIFIED Status: Chronic - Plan cont current plan of care, PT/OT, marriage and family social worker * medication reviewed as below * symptomatic treatment * medically stable * await her VA insurance to approve for rehab placement. Review of Systems - Review of Systems ENT: negative: Ear Pain, Ear Discharge, Nose Pain, Nose Discharge, Nose Congestion, Mouth Pain, Mouth Swelling, Throat Pain, Throat Swelling, Other Respiratory: negative: Cough, Dry, Shortness of Breath, Hemoptysis, SOB with Excertion, Pleuritic Pain, Sputum, Wheezing Cardiovascular: negative: chest pain, palpitations, orthopnea, paroxysmal nocturnal dyspnea, edema, light headedness, other Gastrointestinal: negative: Nausea, Vomiting, Abdominal Pain, Diarrhea, Constipation, Melena, Hematochezia, Other Genitourinary: negative: Dysuria, Frequency, Incontinence, Hematuria, Retention , Other Musculoskeletal: negative: Neck Pain, Shoulder Pain, Arm Pain, Back Pain, Hand Pain, Leg Pain, Foot Pain, Other Skin: negative: Rash, Lesions, Jr, Bruising, Other - Medications/Allergies Allergies/Adverse Reactions: Allergies Allergy/AdvReac Type Severity Reaction Status Date / Time acetaminophen [From Tylenol] Allergy Verified 05/13/18 09:01 amitriptyline Allergy Verified 05/13/18 09:01 amoxicillin Allergy Verified 05/13/18 09:01 baclofen Allergy Verified 05/13/18 09:01 ciprofloxacin Allergy Verified 05/13/18 09:01 erythromycin base Allergy Verified 05/13/18 09:01 Estrogens Allergy Verified 05/13/18 09:01 Iodine and Iodide Containing Allergy Verified 05/13/18 09:01 Produc naproxen [From Aleve] Allergy Verified 05/13/18 09:01 Penicillins Allergy Verified 05/13/18 09:01 Tetracyclines Allergy Verified 05/13/18 09:01 Medications: Current Medications Al Hydroxide/Mg Hydroxide (Maalox) 30 ml PO Q4H PRN PRN Reason: Indigestion Last Admin: 05/22/18 22:20 Dose: 30 ml Albuterol Sulfate (Proventil Hfa) 2 puff INH BID-RT [facility] Last Admin: 05/23/18 07:13 Dose: 2 puff Artificial Tears (Tears Naturale) 2 drop EA EYE PRN PRN PRN Reason: Dry Eyes Atorvastatin Calcium (Lipitor) 80 mg PO [facility] Last Admin: 05/22/18 20:36 Dose: 80 mg Bisacodyl (Dulcolax) 10 mg MD Q12H PRN PRN Reason: Constipation Calcium Carbonate (Tums) 500 mg PO Q6H PRN PRN Reason: .INDIGESTION Last Admin: 05/22/18 22:20 Dose: 500 mg Dextrose/Water (Dextrose 50%) 25 gm SLOW IVP PRN PRN PRN Reason: Hypoglycemia Diphenhydramine HCl (Benadryl) 25 mg IVP Q6H PRN PRN Reason: Itching Diphenhydramine HCl (Benadryl) 25 mg PO Q6H PRN PRN Reason: Itching Last Admin: 05/20/18 17:27 Dose: 25 mg Doxepin HCl (Sinequan) 25 mg PO [facility] Last Admin: 05/22/18 20:36 Dose: 25 mg Escitalopram Oxalate (Lexapro) 20 mg PO QAM [facility] Last Admin: 05/23/18 08:43 Dose: 20 mg Ferrous Sulfate (Feosol) 325 mg PO QAM-[facility] Last Admin: 05/23/18 08:43 Dose: 325 mg Gabapentin (Neurontin) 600 mg PO TID [facility] Last Admin: 05/23/18 08:41 Dose: 600 mg Glucagon (Glucagon) 1 mg IM PRN PRN PRN Reason: Hypoglycemia Guaifenesin (Organ-I Nr) 200 mg PO Q8HR [facility] Last Admin: 05/23/18 06:04 Dose: 200 mg Guaifenesin (Robitussin Sf) 200 mg PO Q4H PRN PRN Reason: Cough Hydralazine HCl (Apresoline) 10 mg SLOW IVP Q4H PRN PRN Reason: SBP > 180 and HR < 70 Last Admin: 05/20/18 18:17 Dose: 10 mg Dextrose/Water (D5w) 1,000 mls @ 0 mls/hr IV .Q0M PRN PRN Reason: Hypoglycemia Insulin Glargine 8 units/ (Miscellaneous Medication) 0.08 mls @ 0 mls/hr SC [facility] Last Admin: 05/22/18 20:37 Dose: 0.08 mls Insulin Human Lispro (Humalog) 0 units SC .MODERATE SLIDING SC PRN PRN Reason: Moderate Correctional Scale Last Admin: 05/17/18 15:36 Dose: 4 unit Insulin Human Lispro (Humalog) 0 units SC .BEDTIME SLIDING SC PRN PRN Reason: Bedtime Correctional Scale Last Admin: 05/18/18 21:12 Dose: 2 unit Levothyroxine Sodium (Synthroid) 88 mcg PO 0600 [facility] Last Admin: 05/23/18 06:04 Dose: 88 mcg Lisinopril (Zestril) 5 mg PO DAILY [facility] Last Admin: 05/23/18 08:41 Dose: 5 mg Loratadine (Claritin) 10 mg PO QAM [facility] Last Admin: 05/23/18 08:40 Dose: 10 mg Magnesium Hydroxide (Milk Of Magnesium) 30 ml PO Q12H PRN PRN Reason: Constipation Melatonin (Melatonin) 6 mg PO [facility] Last Admin: 05/22/18 20:37 Dose: 6 mg Menthol/Methyl Salicylate (Muscle Rub Cream (Bengay)) 0 gm TOP BID [facility] Last Admin: 05/23/18 08:45 Dose: Not Given Metformin HCl (Glucophage) 1,000 mg PO BID-[facility] Last Admin: 05/23/18 08:42 Dose: 1,000 mg Metoprolol Tartrate (Lopressor) 25 mg PO BID [facility] Last Admin: 05/23/18 08:44 Dose: 25 mg Mineral Oil/White Petrolatum (Lacri-Lube Ointment) 0 gm EA EYE [facility] Last Admin: 05/22/18 20:38 Dose: Not Given Mineral Oil/White Petrolatum (Eucerin Cream) 0 gm TOP BIDPRN PRN PRN Reason: Dry Skin Morphine Sulfate (Morphine) 2 mg SLOW IVP Q1H PRN PRN Reason: Moderate Breakthrough Pain Last Admin: 05/22/18 22:20 Dose: 2 mg Ondansetron HCl (Zofran) 4 mg IVP DAILYPRN PRN PRN Reason: Nausea Last Admin: 05/17/18 02:55 Dose: 4 mg Ondansetron HCl (Zofran Odt) 4 mg PO Q6H PRN PRN Reason: Nausea/Vomiting Last Admin: 05/22/18 18:22 Dose: 4 mg Oxybutynin Chloride (Ditropan Xl) 5 mg PO DAILY [facility] Last Admin: 05/23/18 08:40 Dose: 5 mg Pantoprazole Sodium (Protonix) 40 mg PO BID [facility] Last Admin: 05/23/18 08:43 Dose: 40 mg Estrogen,Con/M- Progest Acet [ Prempro 0.3 Mg-1.5 Mg Tablet] 0 each PO QAM [facility] Last Admin: 05/23/18 08:44 Dose: 1 each Promethazine HCl (Phenergan) 12.5 mg PO Q4H PRN PRN Reason: Nausea/Vomiting Sodium Chloride (Flush - Normal Saline) 10 ml IVF PRN PRN PRN Reason: Saline Flush Last Admin: 05/22/18 10:41 Dose: 10 ml Throat Lozenges (Cepastat Lozenges) 1 adeline PO Q2H PRN PRN Reason: Sore Throat Tizanidine HCl (Zanaflex) 4 mg PO Q6H PRN PRN Reason: Muscle Spasm Last Admin: 05/23/18 09:46 Dose: 4 mg Tramadol HCl (Ultram) 50 mg PO Q6H PRN PRN Reason: Mild Pain (1-3) Tramadol HCl (Ultram) 100 mg PO Q6H PRN PRN Reason: Moderate Pain (4-6) Last Admin: 05/23/18 09:52 Dose: 100 mg Zolpidem Tartrate (Ambien) 5 mg PO HSPRN PRN PRN Reason: Insomnia
--- NOTE | 2018-05-23 12:46 | DIS ---
DATE OF ADMISSION: 05/14/2018 DATE OF DISCHARGE: 05/23/2018 DISCHARGE DISPOSITION: Rehabilitation. PRIMARY DISCHARGE DIAGNOSIS: Status post lumbar laminectomy. SECONDARY DISCHARGE DIAGNOSES: Hypothyroidism, hypertension, gastroesophageal reflux disease, dyslip idemia, diabetes type 2, asthma, normocytic normochromic anemia. PRIMARY PROCEDURE/OPERATION: Lumbar laminectomy. RADIOLOGICAL INVESTIGATION: Ultrasound negative for DVT. SIGNIFICANT LABORATORY DATA: WBC 9.2, hemoglobin 8.8, platelet 380. Sodium 138, creatinine 0.62. DISCHARGE MEDICATIONS: Imitrex 100 mg q.2 hourly p.r.n., ProAir HFA two puff inhalation b.i.d., aspi rin 81 mg p.o. daily (start this medicine when neurosurgeon okay), Lipitor 80 mg p.o. daily, Colace 1 00 mg p.o. b.i.d., doxepin 25 mg p.o. at bedtime, Lexapro 20 mg p.o. daily, Prempro one tablet daily, Flonase nasal spray b.i.d., gabapentin 600 mg t.i.d., Levemir 8 units subcu at bedtime, Synthroid 88 mcg p.o. daily, Lidoderm patch topical application daily, lisinopril 5 mg p.o. daily, melatonin 6 mg p.o. at bedtime, Mobic 7.5 mg p.o. daily, metformin 1000 mg p.o. b.i.d., Lopressor 25 mg p.o. b.i.d. , morphine sulfate 15 mg b.i.d. p.r.n. and 15 mg t.i.d., rabeprazole 20 mg p.o. b.i.d., Symbicort 2 p uff inhalation b.i.d. CONTRAINDICATIONS: None. CODE STATUS: FULL CODE. INPATIENT CONSULTANTS: Dr. Sainz was primary. Sound team was following for medical management. TEST RESULTS PENDING ON DISCHARGE: None. ALLERGIES: AMITRIPTYLINE, AMOXICILLIN, BACLOFEN, CIPRO. DISCHARGE PLAN: Post hospital, the patient is planned for discharge to rehabilitation. HOSPITAL COURSE: The patient was admitted for lumbar laminectomy for her chronic low back pain and l umbar stenosis. The patient had surgery done by Dr. Sainz and postoperatively, Sound team was co nsulted for medical management. The patient was requiring rehabilitation placement and that is why w ith help of caseworker protective services, the patient is planned for discharge to rehab when improved. While in hosp ital, she had hypotension that was resolved with IV fluid. Overall, the patient is medically stable for discharge today and she has approval to go to rehab ami corona
[2018-05-23] MEDS: Calcium Carbonate 500 MG ChewTAB PO PRN (14:19)
[2018-05-23 15:49] VITALS: BP 137/77; TEMP 98.4
== END 2018-05-23 17:38 | DRG 455 ==
LOC: SURG A 05-16 05:51 → SJJU 05-16 14:43
PROVIDERS: ADMIT Neurological Surgery; ATTEND Neurological Surgery
PROC: 0SG10A0 Fusion of 2 or more Lumbar Vertebral Joints with Interbody Fusion Device, Anterior Approach, Anterior Column, Open Approach (ICD-10-PCS; principal; 2018-05-16)
PROC: 01NB0ZZ Release Lumbar Nerve, Open Approach (ICD-10-PCS; 2018-05-16)
PROC: 0SG1071 Fusion of 2 or more Lumbar Vertebral Joints with Autologous Tissue Substitute, Posterior Approach, Posterior Column, Open Approach (ICD-10-PCS; 2018-05-16)
DX: M43.16 Spondylolisthesis, lumbar region (principal); Z98.890 Other specified postprocedural states; J45.909 Unspecified asthma, uncomplicated; I10 Essential (primary) hypertension; L50.8 Other urticaria; F43.10 Post-traumatic stress disorder, unspecified; F32.9 Major depressive disorder, single episode, unspecified; Z88.0 Allergy status to penicillin; Z88.6 Allergy status to analgesic agent; Z88.1 Allergy status to other antibiotic agents; Z91.041 Radiographic dye allergy status; M54.16 Radiculopathy, lumbar region; M51.16 Intervertebral disc disorders with radiculopathy, lumbar region; M48.061 Spinal stenosis, lumbar region without neurogenic claudication; K21.9 Gastro-esophageal reflux disease without esophagitis; E03.9 Hypothyroidism, unspecified; E78.5 Hyperlipidemia, unspecified; E11.9 Type 2 diabetes mellitus without complications; D64.9 Anemia, unspecified; I95.9 Hypotension, unspecified; F41.9 Anxiety disorder, unspecified
CPT/HCPCS: 36415; 36416; 76001; 80048; 81003; 82728; 83540; 83550; 85025; 85610; 85730; 93970; 94664; C1713; C1768; G8978-GP-CL; G8979-GP-CJ; G8987-GO-CJ; G8988-GO-CI; J0360; J0670; J1100; J1170; J1885; J1956; J2001; J2250; J2270; J2370; J2405; J2550; J2704; J2765; J2916; J3010; J3370; J3490; J7050; J7506; L0639; Q0162

== ENCOUNTER 2018-07-15 13:39 | Outpatient (CLI) | payer OTHER ==
--- NOTE | 2018-07-15 14:45 | RAD ---
LUMBAR SPINE TWO VIEWS: History: 56-year-old female with history of lumbar radiculopathy. Comparison: 02-13-17 FINDINGS: Post-operative laminectomy and fusion changes at L3-4 and L4-5 with pedicle screws and intradiscal pr osthesis with very mild anterolisthesis of L3 on L4 and L4 on L5 but no evidence for other significan t malalignment. There are some generalized spondylosis. IMPRESSION: Post-operative changes at L3-4 and L4-5 with laminectomy and posterior fusion and pedicle screw place ment changes. POS: OFF
== END 2018-07-15 13:40 | disposition home or self-care (01) ==
LOC: TBSIIMAG 13:39
PROVIDERS: ATTEND Neurological Surgery
DX: M54.5 Low back pain (principal); M47.16 Other spondylosis with myelopathy, lumbar region; M47.26 Other spondylosis with radiculopathy, lumbar region; Z98.1 Arthrodesis status
CPT/HCPCS: 72100